=== PATIENT | female | born 1990 | race Caucasian/White ===

== ENCOUNTER 2019-12-23 18:40 | Observation (INO) | payer MEDICARE, OTHER ==
[~2019-12-23] VITALS: Ht 157.5 cm; Wt 73.3 kg
[~2019-12-23 18:40] MED LIST: ALBIPROI INH; ALBU90OI INH; ALLI; AMOX500 PO; AZIT250 PO; BENZ100A PO; BIRTH CONTROL PILLS; BUPR150T2; CEPH500 PO; CIPR500 PO; CITA20 PO; CYCL10 PO; Celexa20 MG PO; DIAZ10 PO; DIAZ5 PO; DIPHENHYDRAMINE; DOXY100 PO; ESCI20; HYDACE5 PO; HYDGUAL120 PO; HYDHOMSY PO; IBUP600 PO; IBUP800 PO; INSLI100I; INSUASPI; INSULANI; INSULANI SC; INSULANPEN SC; INSULIN; MEDR10 PO; METO10 PO; MULVITMINE PO; NAPR550 PO; NICO2; ONDA4 PO; OXYACE5T PO; OXYACE7.5T PO; OXYC10ER PO; PENVK500; PERM5TC TOP; PHENA200 PO; PROM12.5S PR; PROM25 PO; RXHYDACE PO; RXOXYACE PO; RXPHEN200 PO; RXPROM25 PO; RXPROM25S PR; RXTRAM50 PO; SULTRIDS PO; TRAACE PO; TRAM50 PO
[2019-12-23 21:04] LABS: BASOPHILS ABSOLUTE AUTO 0.03 K/mm3 (0.00-0.23); BASOPHILS PERCENT AUTO 0 % (0-2); EOSINOPHILS ABSOLUTE AUTO 0.66 K/mm3 (0.00-0.68); EOSINOPHILS PERCENT AUTO 9 % (0-6); Hematocrit 36.4 % (33.0-51.0); Hemoglobin 11.2 g/dL (11.5-16.0); IMMATURE GRAN ABSOLUTE AUTO 0.02 K/mm3 (0.00-0.10); IMMATURE GRAN PERCENT AUTO 0 % (0-1); LYMPHOCYTES PERCENT AUTO 36 % (21-46); MONOCYTES ABSOLUTE AUTO 0.65 K/mm3 (0.16-1.47); MONOCYTES PERCENT AUTO 9 % (4-13); Mean Corpuscular HGB 27.1 pg (26.0-34.0); Mean Corpuscular HGB Conc 30.8 g/dL (31.5-36.5); Mean Corpuscular Volume 88 fL (80-100); Mean Platelet Volume 9.6 fL (9.1-12.4); NEUTROPHILS ABSOLUTE AUTO 3.48 K/mm3 (1.96-9.15); NEUTROPHILS PERCENT AUTO 46 % (41-73); Platelet Count 336 K/mm3 (150-400); RDW Coefficient Variation 16.7 % (11.7-14.2); RDW Standard Deviation 54.9 fL (35.1-46.3); Red Blood Cell Count 4.14 M/mm3 (3.80-5.20); White Blood Cell Count 7.54 K/mm3 (4.00-11.30)
[2019-12-23 21:28] LABS: Alanine Aminotransfer (ALT/SGP 12 U/L (12-78); Albumin, Blood 2.1 g/dL (3.4-5.0); Albumin/Globulin Ratio 0.5 (0.8-1.8); Alk Phos 184 U/L (50-136); Anion Gap 6 mmol/L (6-16); Aspartate Aminotrans (AST/SGOT 22 U/L (12-37); Bilirubin, Total 0.3 mg/dL (0.1-1.0); Blood Urea Nitrogen 6 mg/dL (8-24); Bun/Creatinine Ratio 9.4 (12.0-20.0); CO2, Blood 18 mmol/L (21-32); Calcium, Blood 7.9 mg/dL (8.5-10.1); Chloride, Blood 113 mmol/L (98-108); Creatinine, Blood 0.64 mg/dL (0.40-1.00); Globulin, Blood 4.4 g/dL (2.2-4.0); Glomerular Filtration Rate >60 (60-); Glucose, Blood 77 mg/dL (70-99); Sodium, Blood 137 mmol/L (136-145); Total Protein, Blood 6.5 g/dL (6.4-8.2); Troponin I <0.015 ng/mL (0.000-0.040)
[2019-12-23] MEDS ORDERED: BUPRENORPHINE HC8 MG SL (22:30)
[2019-12-23] MEDS ORDERED: GABA300 (22:30)
[2019-12-23] MEDS ORDERED: Tapazole5 MG PO (22:31)
[2019-12-23] MEDS ORDERED: SERT50 PO (22:31)
[2019-12-23] MEDS ORDERED: METO50 PO (22:31)
[2019-12-23] MEDS ORDERED: ZIPR20 (22:31)
--- NOTE | 2019-12-24 01:08 | NUR ---
ADMITTED TO PCU, A&O, C\O PAIN IN BILAT LE. TRANSFER FROM [facility] TO BED WITHOU ASSIST. SEE ADMISSION ASSESSMENT FOR FULL ASSESSMENT. MEDICATED FOR PAIN SEE SEP. BED IN LOW POSITION, CALL LITGHT IN REACH WILL MONITOR.
[2019-12-24 04:25] LABS: BASOPHILS ABSOLUTE AUTO 0.03 K/mm3 (0.00-0.23); BASOPHILS PERCENT AUTO 0 % (0-2); EOSINOPHILS ABSOLUTE AUTO 0.69 K/mm3 (0.00-0.68); EOSINOPHILS PERCENT AUTO 10 % (0-6); Hemoglobin 9.6 g/dL (11.5-16.0); IMMATURE GRAN ABSOLUTE AUTO 0.01 K/mm3 (0.00-0.10); IMMATURE GRAN PERCENT AUTO 0 % (0-1); LYMPHOCYTES PERCENT AUTO 47 % (21-46); MONOCYTES ABSOLUTE AUTO 0.63 K/mm3 (0.16-1.47); MONOCYTES PERCENT AUTO 9 % (4-13); Mean Corpuscular HGB 26.9 pg (26.0-34.0); Mean Corpuscular Volume 87 fL (80-100); Mean Platelet Volume 9.7 fL (9.1-12.4); NEUTROPHILS ABSOLUTE AUTO 2.27 K/mm3 (1.96-9.15); NEUTROPHILS PERCENT AUTO 33 % (41-73); Platelet Count 310 K/mm3 (150-400); RDW Coefficient Variation 16.9 % (11.7-14.2); RDW Standard Deviation 53.9 fL (35.1-46.3); Red Blood Cell Count 3.57 M/mm3 (3.80-5.20); White Blood Cell Count 6.83 K/mm3 (4.00-11.30)
[2019-12-24 04:40] LABS: Anion Gap 6 mmol/L (6-16); Blood Urea Nitrogen 6 mg/dL (8-24); Bun/Creatinine Ratio 10.1 (12.0-20.0); CO2, Blood 23 mmol/L (21-32); Calcium, Blood 7.1 mg/dL (8.5-10.1); Chloride, Blood 116 mmol/L (98-108); Glomerular Filtration Rate >60 (60-); Glucose, Blood 93 mg/dL (70-99); Potassium, Blood 3.7 mmol/L (3.5-5.5); Sodium, Blood 145 mmol/L (136-145)
--- NOTE | 2019-12-24 11:18 | NUR ---
TRANSFER NOTE PT A&O; WITHDRAWN AND FLAT. PT IND ROOM. PT REPORTING PAIN 8/10 IN BLE; MILD NON-PITTING EDEMA NOTED WITH PINK/REDISH RASH NOTED. PT REFUSING PO PAIN MEDICATIONS; MEDICATED x1 WITH IV DILAUDID. IV PAIN MEDICATION D/C PER ORDERS, PT NOTIFIED AND EDUCATED ON IV AND PO MEDICATIONS; PT REQUESTING THAT THE DR REORDER IV PAIN MEDICATIONS; NOTIFIED DR LAKHANI NO NEW ORDERS. PT DENIES SOB, NAUSEA, AND DIZZINESS. PT CBG >100 THIS AM; NEW ORDERS FROM DR LAKHANI FOR ACHS AND PRN S/Sx HYPOGLYCEMIA. VSS. NO OTHER ACUTE CHANGES NOTED DURING SHIFT. REPORT GIVEN TO RN ASSUMING CARE OF PT; TRANSFERED TO ROOM 325.
[2019-12-24 14:48] LABS: Adenovirus F 40/41 Not Detected (NOT DETECT); Astrovirus Not Detected (NOT DETECT); Campylobacter Sp Not Detected (NOT DETECT); Cryptosporidium Not Detected (NOT DETECT); Cyclospora Cayetanensis Not Detected (NOT DETECT); E. Coli O157 Not Detected (NOT DETECT); Entamoeba Histolytica Not Detected (NOT DETECT); Enteroaggregative E. coli-EAEC Not Detected (NOT DETECT); Enteropathogenic E. coli-EPEC Not Detected (NOT DETECT); Enterotoxigenic E. coli-ETEC Not Detected (NOT DETECT); Giardia Lamblia Not Detected (NOT DETECT); Norovirus GI/GII Not Detected (NOT DETECT); Plesiomonas Shigelloides Not Detected (NOT DETECT); Rotavirus A Not Detected (NOT DETECT); Salmonella Sp Not Detected (NOT DETECT); Sapovirus Not Detected (NOT DETECT); Shiga Toxin-prod E. coli-STEC Not Detected (NOT DETECT); Shigella/Enteroin E. coli-EIEC Not Detected (NOT DETECT); Vibrio Cholerae Not Detected (NOT DETECT); Vibrio Sp Not Detected (NOT DETECT); Yersinia Enterocolitica Not Detected (NOT DETECT)
--- NOTE | 2019-12-24 16:41 | NUR ---
SHIFT SUMMARY PT TRANSFERRED TO MED FLOOR THIS MORNING FROM PCU. PT MEDICATED X2 FOR PAIN THIS SHIFT. PT DENIES SOB, N/V. PT UP INDEPENDENTLY IN ROOM. PT NAPPING MOST OF SHIFT. PT WITHDRAWN BUT COOPERATIVE WITH CARE. PT DECLINED TO EAT BREAKFAST AND LUNCH. PT GI PANEL RESULTS NEGATIVE. CONTACT PRECAUTIONS DISCONTINUED. PT IN BED WITH CALL LIGHT IN REACH. NO ACUTE CHANGES THIS SHIFT.
--- NOTE | 2019-12-25 04:50 | NUR ---
SHIFT SUMMARY ADMITTED FOR HYPOGLYCEMIA. FULL CODE. PLAN IS TO STABILIZE GLUCOSE LEVELS AND DISCHARGE. SHE IS ACHS CHEMSTICKS, ADA DIET, INDEPENDENT IN ROOM, RA. BLE HAVE MILD EDEMA. PO PAIN MEDS GIVEN TWICE THIS SHIFT FOR BLE PAIN. HUMALOG REQUIRED AT BEDTIME FOR 303 GLUCOSE LEVEL.
[2019-12-25 06:15] LABS: Hematocrit 33.8 % (33.0-51.0); Hemoglobin 10.3 g/dL (11.5-16.0); Mean Corpuscular HGB 26.5 pg (26.0-34.0); Mean Corpuscular HGB Conc 30.5 g/dL (31.5-36.5); Mean Corpuscular Volume 87 fL (80-100); Mean Platelet Volume 9.8 fL (9.1-12.4); Platelet Count 347 K/mm3 (150-400); RDW Coefficient Variation 16.7 % (11.7-14.2); RDW Standard Deviation 53.6 fL (35.1-46.3); Red Blood Cell Count 3.88 M/mm3 (3.80-5.20); White Blood Cell Count 6.89 K/mm3 (4.00-11.30)
[2019-12-25 06:33] LABS: Anion Gap 5 mmol/L (6-16); Blood Urea Nitrogen 7 mg/dL (8-24); CO2, Blood 24 mmol/L (21-32); Calcium, Blood 7.6 mg/dL (8.5-10.1); Chloride, Blood 108 mmol/L (98-108); Creatinine, Blood 0.64 mg/dL (0.40-1.00); Glomerular Filtration Rate >60 (60-); Glucose, Blood 272 mg/dL (70-99); Potassium, Blood 4.9 mmol/L (3.5-5.5); Sodium, Blood 137 mmol/L (136-145)
[2019-12-25] MEDS ORDERED: METO25 PO (10:27)
[2019-12-25] MEDS ORDERED: HYDMOR2 PO (10:31)
--- NOTE | 2019-12-25 11:05 | NUR ---
CBG PT REQUESTED CBG CHECKED, SHE STATED IT FELT LOW, CBG 25, JUICE AND SNACKS GIVEN, EDUCATED PT ABOUT THE IMPORTANCE OF EATING MEALS CONSISTENTLY, WILL RE-CHECK CBG
--- NOTE | 2019-12-25 12:38 | NUR ---
SUMMARY/DISCHARGE PT DISCHARGED TO HOME, PT VERBALIZED UNDERSTANDING OF INSTRUCTIONS, DISCHARGE PLANNING HAS MADE FOLLOW UP APPOINTMENT, NEW PATIENT PACKET GIVEN, SCRIPT FOR GLUCOMETER GIVEN, PT TAKEN DOWN SAFELY VIA WHEELCHAIR
== END 2019-12-25 12:20 | disposition home or self-care (01) ==
LOC: ER 18:40 → PCU 18:41 → MEDS 18:41 → PCU 12-24 → ER 12-24 00:02 → PCU 12-24 09:23 → MEDS 12-24 11:18
PROVIDERS: Internal Medicine; Nurse Practitioner Acute Care; Physician Assistant; ADMIT Family Medicine
DX: E11.649 Type 2 diabetes mellitus with hypoglycemia without coma (principal); R65.10 Systemic inflammatory response syndrome (SIRS) of non-infectious origin without acute organ dysfunction; R60.0 Localized edema; R19.7 Diarrhea, unspecified; E05.90 Thyrotoxicosis, unspecified without thyrotoxic crisis or storm; G89.29 Other chronic pain; D64.9 Anemia, unspecified; E88.09 Other disorders of plasma-protein metabolism, not elsewhere classified; I10 Essential (primary) hypertension; F32.9 Major depressive disorder, single episode, unspecified; F41.9 Anxiety disorder, unspecified; E11.42 Type 2 diabetes mellitus with diabetic polyneuropathy; F17.210 Nicotine dependence, cigarettes, uncomplicated; Z79.4 Long term (current) use of insulin; Z79.899 Other long term (current) drug therapy; Z88.8 Allergy status to other drugs, medicaments and biological substances; Z88.0 Allergy status to penicillin; Z79.891 Long term (current) use of opiate analgesic
CPT/HCPCS: 0097U; 36415; 71046; 80048; 80053; 82728; 82947; 83540; 83550; 83605; 83880; 84436; 84443; 84484; 85025; 85027; 93005; 93010; 93306; 93970; 96361; 96365; 96366; 96375; 99285-25; A9270-GY; J0696; J1170; J1650; J2270; J2405; J7030; J7799; Q0163

== ENCOUNTER 2019-12-28 19:26 | Emergency (ER) | payer MEDICARE, OTHER ==
[~2019-12-28] VITALS: Ht 157.5 cm; Wt 67.6 kg
[~2019-12-28 19:26] MED LIST changes: +BUPRENORPHINE HC8 MG SL; +GABA300; +HYDMOR2 PO; +METO25 PO; +METO50 PO; +SERT50 PO; +Tapazole5 MG PO; +ZIPR20
[2019-12-28] MEDS ORDERED: Lasix20 MG PO (22:53)
[2019-12-28] MEDS ORDERED: K-Dur10 MEQ PO (22:53)
== END 2019-12-28 23:44 | disposition home or self-care (01) ==
LOC: ER 19:26
DX: R60.0 Localized edema (principal); Z88.0 Allergy status to penicillin; Z88.8 Allergy status to other drugs, medicaments and biological substances; Z79.84 Long term (current) use of oral hypoglycemic drugs; Z79.899 Other long term (current) drug therapy; E11.9 Type 2 diabetes mellitus without complications; F17.200 Nicotine dependence, unspecified, uncomplicated
CPT/HCPCS: 96374; 96375; 99284-25; A9270; J1170

== ENCOUNTER 2020-02-19 01:50 | Emergency (ER) | payer MEDICARE, OTHER ==
[~2020-02-19] VITALS: Ht 157.5 cm; Wt 68.0 kg
[~2020-02-19 01:50] MED LIST changes: +BASAGLAR K100 UNIT/1 SC; +GABA300 PO; +HUMALOG100 UNIT/1; +Humalog KwikPen 100 SC; +K-Dur10 MEQ PO; +Lasix20 MG PO; +Lopressor 25 mg25 MG PO; +Lopressor 50 mg50 MG PO; +METHI10 PO; +NOVOLOG FL100 UNIT/3 SC; -ZIPR20; +ZIPR20 PO
[2020-02-19] MEDS ORDERED: CLIN300 PO (02:26)
[2020-02-19] MEDS ORDERED: ATEN50 PO (02:27)
[2020-02-19] MEDS ORDERED: Phenergan25 M1 PO (02:28)
[2020-02-19 03:11] LABS: Alanine Aminotransfer (ALT/SGP 26 U/L (12-78); Albumin, Blood 2.9 g/dL (3.4-5.0); Albumin/Globulin Ratio 0.7 (0.8-1.8); Alk Phos 148 U/L (50-136); Anion Gap 9 mmol/L (6-16); Aspartate Aminotrans (AST/SGOT 57 U/L (12-37); Bilirubin, Total 0.4 mg/dL (0.1-1.0); Blood Urea Nitrogen 5 mg/dL (8-24); CO2, Blood 19 mmol/L (21-32); Calcium, Blood 8.4 mg/dL (8.5-10.1); Chloride, Blood 108 mmol/L (98-108); Creatinine, Blood 0.56 mg/dL (0.40-1.00); Globulin, Blood 4.1 g/dL (2.2-4.0); Glomerular Filtration Rate >60 (60-); Glucose, Blood 474 mg/dL (70-99); Potassium, Blood 3.7 mmol/L (3.5-5.5); Sodium, Blood 136 mmol/L (136-145)
[2020-02-19 03:23] LABS: BASOPHILS ABSOLUTE AUTO 0.03 K/mm3 (0.00-0.23); BASOPHILS PERCENT AUTO 0 % (0-2); EOSINOPHILS ABSOLUTE AUTO 0.08 K/mm3 (0.00-0.68); EOSINOPHILS PERCENT AUTO 1 % (0-6); Hematocrit 36.7 % (33.0-51.0); Hemoglobin 11.7 g/dL (11.5-16.0); IMMATURE GRAN ABSOLUTE AUTO 0.02 K/mm3 (0.00-0.10); IMMATURE GRAN PERCENT AUTO 0 % (0-1); LYMPHOCYTES ABSOLUTE AUTO 2.24 K/mm3 (0.84-5.20); LYMPHOCYTES PERCENT AUTO 28 % (21-46); MONOCYTES ABSOLUTE AUTO 0.56 K/mm3 (0.16-1.47); MONOCYTES PERCENT AUTO 7 % (4-13); Mean Corpuscular HGB 25.7 pg (26.0-34.0); Mean Corpuscular HGB Conc 31.9 g/dL (31.5-36.5); Mean Corpuscular Volume 81 fL (80-100); Mean Platelet Volume 12.4 fL (9.1-12.4); NEUTROPHILS ABSOLUTE AUTO 5.11 K/mm3 (1.96-9.15); NEUTROPHILS PERCENT AUTO 64 % (41-73); Platelet Count 201 K/mm3 (150-400); RDW Coefficient Variation 12.6 % (11.7-14.2); RDW Standard Deviation 37.1 fL (35.1-46.3); Red Blood Cell Count 4.56 M/mm3 (3.80-5.20); White Blood Cell Count 8.04 K/mm3 (4.00-11.30)
[2020-02-19 03:35] LABS: Source, Urine Clean Catch
[2020-02-19 03:37] LABS: Bilirubin, Urine Neg (Neg); Blood, Urine Neg (Neg); Glucose Qualitative, Urine 4+ (Neg); Ketones, Urine Neg (Neg); Leukocyte Esterase, Urine Neg (Neg); Nitrite, Urine Neg (Neg); Protein, Urine Neg (Neg); Specific Gravity, Urine 1.015 (1.003-1.022); Urobilinogen, Urine NORM (Normal)
[2020-02-19 03:40] LABS: Appearance, Urine Clear (Clear); Color, Urine Yellow (P-Yellow)
== END 2020-02-19 06:16 | disposition home or self-care (01) ==
LOC: ER 01:50
PROVIDERS: Emergency Medicine
DX: R10.84 Generalized abdominal pain (principal); Z88.0 Allergy status to penicillin; Z88.8 Allergy status to other drugs, medicaments and biological substances; Z79.899 Other long term (current) drug therapy; Z79.4 Long term (current) use of insulin; E11.9 Type 2 diabetes mellitus without complications; F17.200 Nicotine dependence, unspecified, uncomplicated
CPT/HCPCS: 74176; 80053; 81003; 81025; 82947; 83690; 85025; 96360; 96361; 99284-25; J7030

== ENCOUNTER 2020-04-28 17:18 | Emergency (ER) | payer MEDICARE, OTHER ==
[~2020-04-28] VITALS: Ht 157.5 cm; Wt 63.5 kg
[~2020-04-28 17:18] MED LIST changes: +CLIN300 PO; +FAMO20 PO; -HUMALOG100 UNIT/1; +HUMALOG100 UNIT/1 SC; +METO50ER PO; +NARCAN4 M1; +OXYC10TA19 PO; +Phenergan25 M1 PO
[2020-04-28] MEDS ORDERED: GABA300 PO (20:20)
[2020-04-28] MEDS ORDERED: FIASP 100100 UNIT/3 (20:21)
[2020-04-28] MEDS ORDERED: [UNRECOGNIZED DRUG - OTHER] IJ (21:49)
== END 2020-04-28 22:23 | disposition home or self-care (01) ==
LOC: ER 17:18
DX: T40.2X1A Poisoning by other opioids, accidental (unintentional), initial encounter (principal); R40.20 Unspecified coma; G89.29 Other chronic pain; R10.9 Unspecified abdominal pain; I10 Essential (primary) hypertension; F32.9 Major depressive disorder, single episode, unspecified; F41.9 Anxiety disorder, unspecified; E03.9 Hypothyroidism, unspecified; F17.200 Nicotine dependence, unspecified, uncomplicated; Z88.0 Allergy status to penicillin; Z88.6 Allergy status to analgesic agent; Z88.8 Allergy status to other drugs, medicaments and biological substances; Z79.4 Long term (current) use of insulin; Z79.899 Other long term (current) drug therapy
CPT/HCPCS: 36415; 82947; 96374; 96375; 99284-25; J2310; J2405

== ENCOUNTER 2020-05-06 13:47 | Inpatient (IN) | payer MEDICARE, OTHER ==
[~2020-05-06] VITALS: Ht 157.5 cm; Wt 70.3 kg
[~2020-05-06 13:47] MED LIST changes: -BASAGLAR K100 UNIT/1 SC; -METO50ER PO; -OXYC10TA19 PO; +[UNRECOGNIZED DRUG - OTHER] IJ
[2020-05-06 14:41] LABS: Source, Urine Clean Catch
[2020-05-06 14:49] LABS: Bilirubin, Urine Neg (Neg); Blood, Urine Neg (Neg); Glucose Qualitative, Urine 4+ (Neg); Ketones, Urine 4+ (Neg); Leukocyte Esterase, Urine Neg (Neg); Nitrite, Urine Neg (Neg); Protein, Urine Neg (Neg); Urobilinogen, Urine NORM (Normal)
[2020-05-06 15:00] LABS: Appearance, Urine Clear (Clear); Color, Urine Pale Yellow (P-Yellow)
[2020-05-06 15:04] LABS: Base Excess Venous -22.8 mmol/L; Bicarbonate Venous 9.5 mmol/L (24.0-30.0); PCO2 Venous 17.8 mmHg (38-42); PO2 Venous 120 mmHg (38-42); pH Blood Venous 7.15 (7.34-7.37)
[2020-05-06 15:05] LABS: BASOPHILS ABSOLUTE AUTO 0.02 K/mm3 (0.00-0.23); BASOPHILS PERCENT AUTO 0 % (0-2); EOSINOPHILS ABSOLUTE AUTO 0.01 K/mm3 (0.00-0.68); EOSINOPHILS PERCENT AUTO 0 % (0-6); Hematocrit 36.2 % (33.0-51.0); Hemoglobin 10.8 g/dL (11.5-16.0); IMMATURE GRAN ABSOLUTE AUTO 0.13 K/mm3 (0.00-0.10); IMMATURE GRAN PERCENT AUTO 1 % (0-1); LYMPHOCYTES ABSOLUTE AUTO 1.33 K/mm3 (0.84-5.20); LYMPHOCYTES PERCENT AUTO 12 % (21-46); MONOCYTES ABSOLUTE AUTO 0.56 K/mm3 (0.16-1.47); MONOCYTES PERCENT AUTO 5 % (4-13); Mean Corpuscular HGB 25.1 pg (26.0-34.0); Mean Corpuscular HGB Conc 29.8 g/dL (31.5-36.5); Mean Corpuscular Volume 84 fL (80-100); Mean Platelet Volume 11.6 fL (9.1-12.4); NEUTROPHILS PERCENT AUTO 82 % (41-73); Platelet Count 220 K/mm3 (150-400); RDW Coefficient Variation 14.4 % (11.7-14.2); RDW Standard Deviation 43.5 fL (35.1-46.3); Red Blood Cell Count 4.31 M/mm3 (3.80-5.20); White Blood Cell Count 11.45 K/mm3 (4.00-11.30)
[2020-05-06] MEDS ORDERED: BASAGLAR K100 UNIT/1 SC (15:45)
[2020-05-06] MEDS ORDERED: METO50ER PO (15:46)
[2020-05-06] MEDS ORDERED: OXYC10TA19 PO (15:46)
[2020-05-06] MEDS ORDERED: GABA300 PO (15:47)
[2020-05-06] MEDS ORDERED: PROM25 PO (15:48)
[2020-05-06] MEDS ORDERED: FIASP 100100 UNIT/3 SC (15:49)
[2020-05-06 16:24] LABS: Alanine Aminotransfer (ALT/SGP 16 U/L (12-78); Albumin/Globulin Ratio 0.6 (0.8-1.8); Alk Phos 196 U/L (50-136); Aspartate Aminotrans (AST/SGOT 16 U/L (12-37); Bilirubin, Total 0.7 mg/dL (0.1-1.0); Blood Urea Nitrogen 11 mg/dL (8-24); Bun/Creatinine Ratio 19.2 (12.0-20.0); Calcium, Blood 8.3 mg/dL (8.5-10.1); Chloride, Blood 102 mmol/L (98-108); Creatinine, Blood 0.57 mg/dL (0.40-1.00); Globulin, Blood 5.1 g/dL (2.2-4.0); Glomerular Filtration Rate >60 (60-); Potassium, Blood 4.3 mmol/L (3.5-5.5); Sodium, Blood 132 mmol/L (136-145); Total Protein, Blood 8.1 g/dL (6.4-8.2)
[2020-05-06 16:25] LABS: Anion Gap 24 mmol/L (6-16); CO2, Blood 6 mmol/L (21-32); Glucose, Blood 773 mg/dL (70-99)
[2020-05-06 18:59] LABS: Albumin, Blood 2.9 g/dL (3.4-5.0); Anion Gap 23 mmol/L (6-16); Blood Urea Nitrogen 10 mg/dL (8-24); Bun/Creatinine Ratio 17.1 (12.0-20.0); CO2, Blood 4 mmol/L (21-32); Calcium, Blood 8.2 mg/dL (8.5-10.1); Chloride, Blood 117 mmol/L (98-108); Creatinine, Blood 0.58 mg/dL (0.40-1.00); Glomerular Filtration Rate >60 (60-); Glucose, Blood 593 mg/dL (70-99); Phosphorus, Blood 4.6 mg/dL (2.5-4.9)
[2020-05-06 19:10] LABS: Sodium, Blood 144 mmol/L (136-145)
--- NOTE | 2020-05-06 21:00 | NUR ---
CALL PLACED TO JADEN GALLARDO. PT STATING THE DILANITA ISNT WORKING AND SHE WANTS HER MEDS. COMPLAINS OF CONSTANT 8-10/10 PAIN, N&V. PER SAMI AWAITING RESULTS OF U-TOX BEFORE ORDERING MORE PAIN/ANXIETY MEDS.
[2020-05-06 21:03] LABS: U Amphetamine Screen Not Detected; U Barbituate Screen Not Detected; U Benzodiazapine Screen Not Detected; U Buprenorphine Screen Not Detected; U Cannabinoids Screen Not Detected; U Cocaine Screen Not Detected; U Methadone Screen Not Detected; U Methamphetamine Screen Not Detected; U Opiates Screen Not Detected; U Oxycodone Screen Not Detected; U Phencyclidine Screen Not Detected; U Propoxyphene Screen Not Detected
[2020-05-06 21:15] LABS: Glucose, Blood 596 mg/dL (70-99)
--- NOTE | 2020-05-06 23:06 | NUR ---
IV IN R BREAST INFILITRATED. PG PLACED TO MIKEY. IF UNABLE TO PLACE OK FOR CRITICAL CARE CONSULT TO PLACE A LINE PER JADEN GALLARDO
--- NOTE | 2020-05-06 23:22 | NUR ---
INSULIN GTT OFF FOR A PERIOD OF TIME AWAITING NEW LINE PLACEMENT.CBG 422 AND THEN 405 WHEN GTT WAS RESTARTED. CURRENTLY RUNNING AT 6U/KG. WILL CONTINUE TO MONITOR.
[2020-05-06 23:50] LABS: Albumin, Blood 3.1 g/dL (3.4-5.0); Anion Gap 18 mmol/L (6-16); Blood Urea Nitrogen 8 mg/dL (8-24); Bun/Creatinine Ratio 14.4 (12.0-20.0); CO2, Blood 6 mmol/L (21-32); Calcium, Blood 8.8 mg/dL (8.5-10.1); Chloride, Blood 121 mmol/L (98-108); Creatinine, Blood 0.55 mg/dL (0.40-1.00); Glomerular Filtration Rate >60 (60-); Glucose, Blood 415 mg/dL (70-99); Phosphorus, Blood 1.9 mg/dL (2.5-4.9); Potassium, Blood 4.1 mmol/L (3.5-5.5); Sodium, Blood 145 mmol/L (136-145)
--- NOTE | 2020-05-07 00:12 | NUR ---
PT C/O PERSISTENT PAIN AND N&V. DILAUDID WORKS WELL FOR A SHORT TIME BUT SHE IS FREQUENTLY ASKING FOR "MY MEDS". CALL PLACED TO DR. ESPARZA. ORDERS RECEIVED TO KEEP DILAUDID ORDER IS AND INCREASE FREQUENCY OF ZOFRAN. DR ESPARZA TO PUT ORDERS IN. PT IS CURRENTLY SLEEPING AND DOES NOT APPEAR TO BE IN PAIN OR NAUSEOUS AT THIS TIME.
[2020-05-07 03:44] LABS: Hemoglobin 11.1 g/dL (11.5-16.0); Mean Corpuscular HGB 24.4 pg (26.0-34.0); Mean Corpuscular Volume 82 fL (80-100); Mean Platelet Volume 10.2 fL (9.1-12.4); Platelet Count 272 K/mm3 (150-400); RDW Coefficient Variation 14.8 % (11.7-14.2); Red Blood Cell Count 4.54 M/mm3 (3.80-5.20); White Blood Cell Count 15.78 K/mm3 (4.00-11.30)
[2020-05-07 04:06] LABS: Albumin, Blood 3.1 g/dL (3.4-5.0); Anion Gap 14 mmol/L (6-16); Blood Urea Nitrogen 8 mg/dL (8-24); Bun/Creatinine Ratio 15.4 (12.0-20.0); CO2, Blood 10 mmol/L (21-32); Calcium, Blood 9.3 mg/dL (8.5-10.1); Chloride, Blood 126 mmol/L (98-108); Creatinine, Blood 0.52 mg/dL (0.40-1.00); Glomerular Filtration Rate >60 (60-); Glucose, Blood 233 mg/dL (70-99); Magnesium, Blood 2.1 mg/dL (1.6-2.4); Potassium, Blood 3.2 mmol/L (3.5-5.5); Sodium, Blood 150 mmol/L (136-145)
[2020-05-07 04:09] LABS: Phosphorus, Blood 0.8 mg/dL (2.5-4.9)
--- NOTE | 2020-05-07 04:43 | NUR ---
PT PHOS CRITICALLY LOW AT 0.8. CALL PLACED TO VILMA. ORDERS RECEIVED TO REPLACE WITH K-PHOS. WORSHIP DIRECTOR NOTIFIED
[2020-05-07 05:41] LABS: Albumin/Globulin Ratio 0.6 (0.8-1.8); Aspartate Aminotrans (AST/SGOT 12 U/L (12-37); Bilirubin, Total 0.6 mg/dL (0.1-1.0); Globulin, Blood 5.2 g/dL (2.2-4.0); Total Protein, Blood 8.3 g/dL (6.4-8.2)
[2020-05-07 06:12] LABS: Alanine Aminotransfer (ALT/SGP 17 U/L (12-78); Alk Phos 189 U/L (50-136)
--- NOTE | 2020-05-07 06:15 | NUR ---
SHIFT SUMMARY: PT ALERT AND ORIENTED. RESTLESS AND IMPULSIVE. NEEDED FREQUENT REMINDERS TO NOT GET OUT OF BED. SLEPT ON AND OFF T/O NIGHT. PT REPORTS HER LAST USE OF OXY WAS MONDAY. APPEARS TO BE IN WITHDRAWALS-TACHYCARDIC, HTN, PUPILS DILATED. RECEIVING DILAUDID Q 2. PT FREQUENTLY REQUESTS "MY MEDICATION". DILAUDID HAS GOOD EFFECT FOR A SHORT PERIOD OF TIME. PT WAS PERSISTENTLY NAUSEOUS AND RETCHING/VOMITING. ZOFRAN ORDERS CHANGED TO INCREASE FREQUENCY. SEEMS TO HAVE GOOD EFFECT. WHEN PT CANT GET MEDS IMMEDIATELY SHE WILL BEGIN TO YELL OUT "NURSE" AND "IT HURTS" DESPITE REDIRECTION AND EXPLAINING THAT IT MIGHT BE A MOMENT. SHE HAS BEEN ST MAJORITY OF SHIFT HOWEVER HR IS IN THE 90S CURRENTLY, SBP IN THE 150S. LUNG SOUNDS ARE CLEAR AND SHE SATS WELL ON RA. VOIDS ON OWN. PT HAS A PG TO MIKEY AND HAD A PIV IN R HAND THAT SHE STATED WAS PAINFUL WHEN FLUSHED AND WOULD NOT INFUSE. PG FLUSHES AND DRAWS WELL. D5 1/2NS WITH KCL INFUSING AT 150MLS/HR, INSULIN GTT AT 5U-LAST CBG 225. GAP IS CLOSED HOWEVER CO2 IS 10. K+ AND PHOS LOW THIS AM. REPLACEMENTS ORDERED HOWEVER PER PHARMACY K-PHOS IS NOT COMPATIBLE WITH INSULIN AND THERE IS ONLY THE PG AT THIS TIME. PT MAY NEED LINE PLACED. PG WAS DIFFICULT TO PLACE. WILL PASS REPORT TO ONCOMING SHIFT 225.
--- NOTE | 2020-05-07 07:30 | NUR ---
ASSUMED CARE: PT SITTING UP IN BED, CALLING OUT TO NURSE. UPON ENTERING ROOM PT RETCHING, ASKING FOR ICE WATER. EXPLAINED THAT FLUIDS AND ICE ARE A BAD IDEA AT THIS TIME DUE TO THE PERSISTENT NAUSEA. POWERGLIDE IN PLACE WITH INSULIN GTT AT 5 UNITS PER HOUR AT THIS TIME WELL D5 GTT. NEEDS SECOND IV ACCESS FOR KPHOS INFUSION. STAVE HEWER AWARE
[2020-05-07 07:59] LABS: Anion Gap 11 mmol/L (6-16); Blood Urea Nitrogen 8 mg/dL (8-24); Bun/Creatinine Ratio 14.4 (12.0-20.0); CO2, Blood 13 mmol/L (21-32); Calcium, Blood 9.5 mg/dL (8.5-10.1); Chloride, Blood 126 mmol/L (98-108); Creatinine, Blood 0.55 mg/dL (0.40-1.00); Glomerular Filtration Rate >60 (60-); Glucose, Blood 221 mg/dL (70-99); Potassium, Blood 2.8 mmol/L (3.5-5.5); Sodium, Blood 150 mmol/L (136-145)
[2020-05-07 08:01] LABS: Phosphorus, Blood 0.4 mg/dL (2.5-4.9)
--- NOTE | 2020-05-07 08:11 | NUR ---
RN NOTIFIED OF CRITICAL PHOS LEVEL. PT STILL NEEDS SECOND IV ACCESS DUE TO INCOMPATIBILITY OF INSULIN AND KPHOS. ATTEMPTED START FOR IV WITH NO VISIBILITY NOTED FOR NEW START. DISCUSSED WITH PROTECTOR PLATE ATTACHER. PT RESTING QUIETLY AT THIS TIME, HR 110.
--- NOTE | 2020-05-07 10:30 | NUR ---
PT'S SECOND IV INFILTRATED. RECIEVING INSULIN AT 4UNITS/HR. DR MORA CALLED AND STATED SHE WANTED PT TO RECIEVE BOLUS OF 2L NS. STOPPING MAINTENANCE FLUIDS FOR THIS.
--- NOTE | 2020-05-07 13:24 | NUR ---
DR MORA CAME TO SEE PT AWARE THAT PT ONLY HAS ONE IV. PT RECIEVED BOLUS FLUIDS AND AFTER REVIEW OF IV COMPATIBILITY FROM DIFFERENT SOURCE WITH NATIONAL DEDICATED TRUCK DRIVER FOUND IV KPHOS AND INSULIN ARE COMPATIBLE. THIS IS RUNNING THROUGH Y SITE NOW. DR AWARE THAT PT WAS REQUIRING IV DILAUDID Q2 HOURS AND THAT ABDOMINAL XRAY WAS NEGATIVE. DR DISCUSSED WITH PT AND PLANS FOR CT SCAN AND CHANGE IN MEDICATION ORDERS. PT RESTING QUIETLY AT THIS TIME.
[2020-05-07 14:18] LABS: BASOPHILS ABSOLUTE AUTO 0.03 K/mm3 (0.00-0.23); BASOPHILS PERCENT AUTO 0 % (0-2); EOSINOPHILS PERCENT AUTO 0 % (0-6); Hematocrit 33.7 % (33.0-51.0); Hemoglobin 10.4 g/dL (11.5-16.0); IMMATURE GRAN ABSOLUTE AUTO 0.07 K/mm3 (0.00-0.10); IMMATURE GRAN PERCENT AUTO 1 % (0-1); LYMPHOCYTES ABSOLUTE AUTO 1.45 K/mm3 (0.84-5.20); LYMPHOCYTES PERCENT AUTO 10 % (21-46); MONOCYTES ABSOLUTE AUTO 1.14 K/mm3 (0.16-1.47); MONOCYTES PERCENT AUTO 8 % (4-13); Mean Corpuscular HGB Conc 30.9 g/dL (31.5-36.5); Mean Corpuscular Volume 81 fL (80-100); Mean Platelet Volume 11.3 fL (9.1-12.4); NEUTROPHILS ABSOLUTE AUTO 12.17 K/mm3 (1.96-9.15); NEUTROPHILS PERCENT AUTO 82 % (41-73); Platelet Count 246 K/mm3 (150-400); RDW Coefficient Variation 15.3 % (11.7-14.2); RDW Standard Deviation 43.7 fL (35.1-46.3); Red Blood Cell Count 4.16 M/mm3 (3.80-5.20); White Blood Cell Count 14.86 K/mm3 (4.00-11.30)
[2020-05-07 14:28] LABS: Magnesium, Blood 1.9 mg/dL (1.6-2.4)
[2020-05-07 14:29] LABS: Albumin, Blood 2.6 g/dL (3.4-5.0); Anion Gap 11 mmol/L (6-16); Blood Urea Nitrogen 8 mg/dL (8-24); Bun/Creatinine Ratio 15.8 (12.0-20.0); CO2, Blood 12 mmol/L (21-32); Calcium, Blood 8.8 mg/dL (8.5-10.1); Chloride, Blood 128 mmol/L (98-108); Creatinine, Blood 0.51 mg/dL (0.40-1.00); Glomerular Filtration Rate >60 (60-); Glucose, Blood 262 mg/dL (70-99); Phosphorus, Blood 1.1 mg/dL (2.5-4.9); Potassium, Blood 3.6 mmol/L (3.5-5.5); Sodium, Blood 151 mmol/L (136-145)
[2020-05-07 16:18] LABS: CPK Creatine Kinase 80 U/L (26-193); Lactate Dehydrogenase (Ld),Bld 183 U/L (100-240)
[2020-05-07 17:15] LABS: Albumin, Blood 2.5 g/dL (3.4-5.0); Anion Gap 9 mmol/L (6-16); Blood Urea Nitrogen 7 mg/dL (8-24); Bun/Creatinine Ratio 12.9 (12.0-20.0); CO2, Blood 14 mmol/L (21-32); Calcium, Blood 8.7 mg/dL (8.5-10.1); Chloride, Blood 128 mmol/L (98-108); Creatinine, Blood 0.54 mg/dL (0.40-1.00); Glomerular Filtration Rate >60 (60-); Glucose, Blood 140 mg/dL (70-99); Phosphorus, Blood 2.1 mg/dL (2.5-4.9); Potassium, Blood 4.1 mmol/L (3.5-5.5); Sodium, Blood 151 mmol/L (136-145)
--- NOTE | 2020-05-07 18:06 | NUR ---
SHIFT SUMMARY: CALL TO DR MORA AFTER [address] INSTRUCTS D51/2 AND D5 TO RUN CONCURRENTLY. DR STATES TO RUN SECOND BAG OF KPHOS. DR MORA SAID SHE MAY ORDER FURTHER MEDS TO CORRECT CO2 AND MAY STOP INSULIN GTT. NO NEW ORDERS AT THIS TIME. PT HAS BEEN SLEEPING T/O DAY AND WHEN SHE WAKES UP SHE CALLS OUT AND HOLLERS FOR NURSE. THERE HAVE BEEN TIMES WHERE SHE VOMITED OFF SIDE OF BED WITHOUT WARNING. DR MORA AWARE OF CT RESULTS. PT RESTING AT THIS TIME.
--- NOTE | 2020-05-07 23:32 | NUR ---
ASSMUED CARE: PT SLEEPING AT BEGINNING OF SHIFT. UPON ENTERING ROOM PT TO CHECK A BS PT WOKE UP SLIGHTLY SAYING SHE NEEDED HER MEDS. I TOLD HER IT WOULD BE A MOMENT I HADNT GOTTEN A CHANCE TO LOOK OVER HER ORDERS. ONCE I LEFT THE ROOM SHE BEGAN YELLING OUT THAT SHE NEEDED THE NURSE. EXPLAINED MULTIPLE TIMES THAT IT WOULD BE A MOMENT. NOT REDIRECTABLE IN THIS REGARD. SHE CONTINUED TO YELL OUT AND BE DISRUPTIVE. PT GIVEN IV PHENERGAN REQUESTED. IN NSR. HTN WITH SBP IN THE 150S, HR IN THE 80S. LUNG SOUNDS CLEAR ON RA. PT HAS 2 PG ONE IN EACH ARM. D5W INFUSING AT 100MLS/HR, INSULIN GTT AT 4U/KG, KPHOS, AND POTASSIUM ALL INFUSING. PT HAS ORDERS FOR D5 1/2NS WITH 20MEQ KCL WELL D5W TO INFUSE. PLACED CALL TO DR KRAUSE ASKING FOR CLARIFICATION REGARDING THESE ORDERS. ORDERS RECEIVED TO D/C D5W AND RUN D5 1/2NS WITH KCL. PT CAN REPOSITION SELF AND IS STANDBY ASSIST TO USE COMMODE. WILL CONTINUE TO MONITOR
[2020-05-08 04:28] LABS: BASOPHILS ABSOLUTE AUTO 0.04 K/mm3 (0.00-0.23); BASOPHILS PERCENT AUTO 0 % (0-2); EOSINOPHILS ABSOLUTE AUTO 0.02 K/mm3 (0.00-0.68); EOSINOPHILS PERCENT AUTO 0 % (0-6); Hematocrit 32.3 % (33.0-51.0); Hemoglobin 10.1 g/dL (11.5-16.0); IMMATURE GRAN PERCENT AUTO 1 % (0-1); LYMPHOCYTES ABSOLUTE AUTO 5.34 K/mm3 (0.84-5.20); LYMPHOCYTES PERCENT AUTO 26 % (21-46); MONOCYTES ABSOLUTE AUTO 1.64 K/mm3 (0.16-1.47); MONOCYTES PERCENT AUTO 8 % (4-13); Mean Corpuscular HGB 24.5 pg (26.0-34.0); Mean Corpuscular HGB Conc 31.3 g/dL (31.5-36.5); Mean Corpuscular Volume 78 fL (80-100); Mean Platelet Volume 10.4 fL (9.1-12.4); NEUTROPHILS ABSOLUTE AUTO 13.17 K/mm3 (1.96-9.15); NEUTROPHILS PERCENT AUTO 65 % (41-73); Platelet Count 288 K/mm3 (150-400); RDW Coefficient Variation 15.5 % (11.7-14.2); RDW Standard Deviation 43.1 fL (35.1-46.3); Red Blood Cell Count 4.13 M/mm3 (3.80-5.20); White Blood Cell Count 20.31 K/mm3 (4.00-11.30)
[2020-05-08 04:41] LABS: Albumin, Blood 2.5 g/dL (3.4-5.0); Anion Gap 11 mmol/L (6-16); Blood Urea Nitrogen 4 mg/dL (8-24); Bun/Creatinine Ratio 6.9 (12.0-20.0); CO2, Blood 16 mmol/L (21-32); Chloride, Blood 121 mmol/L (98-108); Creatinine, Blood 0.58 mg/dL (0.40-1.00); Glomerular Filtration Rate >60 (60-); Glucose, Blood 61 mg/dL (70-99); Magnesium, Blood 1.4 mg/dL (1.6-2.4); Phosphorus, Blood 3.2 mg/dL (2.5-4.9); Potassium, Blood 2.6 mmol/L (3.5-5.5); Sodium, Blood 148 mmol/L (136-145)
--- NOTE | 2020-05-08 06:10 | NUR ---
SHIFT SUMMARY: PT SLEPT MAJORITY OF NIGHT. WOULD WAKE UP WHEN I WALKED IN TO HER ROOM AND WOULD IMMEDIATLEY ASK FOR HER PAIN MEDS. EXPLAINED THAT IT WOULD BE A MINUTE. I NEEDED TO FINISH WHAT I WAS CURRENTLY DOING AND THEN WOULD GET HER THE PAIN MEDS. SHE WOULD PROCEED TO CRY ASKING WHY I COULDNT DO THE PAIN MEDS FIRST. EXPLAINED I NEEDED TO CHECK HER BLOOD SUGAR AND GIVE OTHER MEDS ALREADY DRAWN UP AND READY TO GIVE FIRST. THESE LINES OF QUESTIONS CONTINUED REPEATEDLY. WHEN I DID GO OUT TO THE [facility] TO GET HER PAIN MEDS SHE CONTINUED TO YELL OUT. ONCE PAIN MEDS WERE FLUSHED IN SHE WOULD FALL ASLEEP. AT ONE POINT HER BLOOD SUGAR DROPPED TO HIGH 50S AND I GAVE HER A SEVERAL ORANGE JUICES. SHE DEMANDED MORE AND I TOLD HER NO. SHE ARGUED WITH ME ABOUT THAT AFTER I TOLD HER THAT ANY MORE WOULD BE TOO M UCH AND SHE ALREADY GOT AN ADDITIONAL JUICE. SO BLOOD SUGAR AT 6AM WAS IN THE 350S AND INSULIN GTT WAS RESTARTED. HER VSS T/O SHIFT. NO OTHER ACUTE CHANGES T/O SHIFT. BEHAVIORS REMAINED UNCHANGED AND SHE CAN NOT BE REDIRECTED. K+ 2.9 THIS AM. VILMA ORDERED 60MEQ KCL IV X 1. WILL PASS REPORT TO ONCOMING SHIFT AND WHEN SHE WAS TOLD
--- NOTE | 2020-05-08 08:30 | NUR ---
AM NOTE... ASSUMED CARE OF PT APROX 0700, PT IS A&Ox4. PT IS VERY SLEEPY BUT WILL WAKE TO LIGHT SHAKING AND/OR LOUD VOICE. PT IS ON INSULIN GTT RUNNING AT 3UNITS/HR AT THE START OF THIS SHIFT. CBG CHECKS Q1HRS. PT ALSO HAS KRIDERS RUNNING PER ORDERS AND D5 W/HALF NS AND POTASSIUM RUNNING PER ORDERS. L/S CLEAR T/O ON RA. BT PRESENT AND HYPOACTIVE NO EDEMA NOTED ON ASSESSMENT BP HYPERTENSIVE OTHER VS STABLE. PT WAKES UP WITH EACH BLOOD SUGAR CHECK ASKING IF ITS TIME FOR HER PAIN MEDS C/O OF 10/10 PAIN BUT THEN QUICKLY GOES BACK TO SLEEP WHEN TOLD IT IS NOT TIME. CALL LIGHT IN REACH WILL CONTINUE TO MONITOR.
[2020-05-08 13:59] LABS: Anion Gap 7 mmol/L (6-16); Blood Urea Nitrogen 4 mg/dL (8-24); Bun/Creatinine Ratio 7.3 (12.0-20.0); CO2, Blood 19 mmol/L (21-32); Calcium, Blood 8.2 mg/dL (8.5-10.1); Chloride, Blood 116 mmol/L (98-108); Creatinine, Blood 0.55 mg/dL (0.40-1.00); Glomerular Filtration Rate >60 (60-); Glucose, Blood 235 mg/dL (70-99); Magnesium, Blood 1.5 mg/dL (1.6-2.4); Potassium, Blood 3.9 mmol/L (3.5-5.5); Sodium, Blood 142 mmol/L (136-145)
--- NOTE | 2020-05-08 17:16 | NUR ---
CNA2 STUDENT DOING CLINICALS AND CARE
--- NOTE | 2020-05-08 17:36 | NUR ---
SHIFT SUMMARY... NO ACUTE NEGATIVE CHANGES NOTED THIS SHIFT. THE INSULIN GTT WAS STOPPED AT APROX 1530 AND PT WAS STARTED ON SUBQ LONG AND SHORT ACTIING INSULING ACHS. AT THIS TIME DR. SMITH WAS SPEAKING WITH THE PT AND MADE THE PT MEDICAL STATUS NO TELE, PT WAS ALSO PLACED BACK ON PO PAIN MEDICATION. PT BECAME VERY UPSET THAT THE IV DILAUDID WAS STOPPED. PT STARTED YELLING FOR THE DOCTOR TO COME BACK AND SPEAK WITH HER. THE DOCTOR CAME BACK INTO THE ROOM SEVERAL TIMES AND TOLD THE PT THAT THE IV PAIN MEDICATION WAS NO LONGER AN OPTION AND THAT SHE WOULD BE DISCHARGING HOME MOST LIKELY TOMORROW AND SHE WANTED HER BACK ON HER HOME REGIMEN. THE PT BECAME MORE UPSET AFTER THE DOCTOR LEFT DEMANDING TO TALK WITH THE DOCTOR AGAIN, WHEN SHE WAS TOLD THAT THE DOCTOR WAS NOT GOING TO BE ABLE TO COME BACK AND SPEAK WITH HER AGAIN SHE STARTED YELLING AT STAFF AND THEN SHE WALKED OUT OF HER ROOM AND SAID "WELL IF NO ONE WILL GET ME THE DOCTOR I'LL GO FIND HER MYSELF." PT THEN ATTEMPTED TO LEAVE THE ICU, ANOTHER RN WAS ABLE TO GET THE PT TO COME BACK TO HER ROOM AND ATTEMPTED TO HELP HER CALM DOWN THE NURSING SHIELD RUNNER WAS CALLED TO THE ROOM AT THAT TIME. PT WAS EXTENSIVELY EDUCATED ON PAIN CONTROL AND MANAGMENT, PT WAS NOT RECEPTIVE OF ANY EDUCATION AT THIS TIME. PT WAS OFFERED A HEATING PAD AND WARM BLANKETS WHICH SHE TOOK. THIS RN HAS ATTEMPTED TO EDUCATE THE PT T/O THIS SHIFT ON PAIN MANAGMENT PT HAS NOT BEEN RECEPTIVE AT ANY POINT THIS SHIFT. PT IS CURRENTLY SITTING UP IN BED RELAXED AND TALKING ON THE PHONE. PT HAS BEEN GETTING UP W/SBA FOR IV LINES TO THE TOILET. CALL LIGHT IN REACH WILL CONTINUE TO MONITOR.
--- NOTE | 2020-05-08 20:33 | NUR ---
ASSUMED CARE. SVEN JUST WOKE UP FROM A NAP. SHE IMMEDIATLY ASKED FOR PAIN MEDICATIONS AND WAS INSISTENT TO HAVE IT NOW. SHE ASKED IF THERE WAS A DIFFERENT DOCTOR GARBAGE PICK UP WORKER TONIGHT. REPORTS PAIN IN ABDOMIN 910 WITH NAUSEA. MILD TENDERNESS, MILD DISTENTION. ASKING FOR LOTS OF SNACKS, GOOD APPETITE. AOX3. ASKED WHEN HER NEXT PHENERGAN IS DUE. POWERGLIDE AND PICC LINE SL. WILL BRING SNACKS, CALL LIGHT IN REACH.
--- NOTE | 2020-05-08 21:00 | NUR ---
PT OUT IN [place], WHEN SHE SAW ME SHE STARTED TO GRAB HER BELLY AND CRY. SAID SHE IS HURTING REALLY BAD AND SHE NEEDS JUST A ONE TIME DOSE. SHE NEEDS SOMETHING MORE THE OXYCODONE IS NOT WORKING. TOLD HER JUST GAVE IT TO HER 30 MINUTES AGO. OFFERED A HEATING PAD FOR HER PAIN, SHE DENIED IT. SHE IS INSIST WE CALL THE DOCTOR AND ASK FOR A ONE TIME DOSE OF SOMETHING, STATES THEY GAVE HER DILUDID LAST NIGHT, AND WANTS TO KNOW IF SHE CAN HAVE THAT. INFORMED HER THAT THE NOTES STATES NO IV PAIN MEDICATION, BUT WILL SEE.
--- NOTE | 2020-05-08 21:10 | NUR ---
PT OUT IN [place] LOOKING FOR ME AGAIN, ASKING ABOUT PAIN MEDS. INFORMED HER AGAIN THAT THEY WILL NOT ORDER IV PAIN MEDICATION. SHE INSIST ON SEEING THE DOCTOR. CALLED DAO STANLEY AND INFORMED OF SITUATION., SHE SAID SHE CAN NOT MAKE IT UP DUE TO EMERGENCY SITUATION. INFORMED THE PATIENT OF THAT, SHE SAID IT IS NOT FAIR, AND THAT SHE DOES NOT UNDERSTAND WHY SHE CAN NOT HAVE IV PAIN MEDS. INFORMED HER THAT HER PAIN MEDS ARE DUE AROUND 0100 AND I WILL BRING THEM IN AT THAT TIME. SHE ASKED AGAIN ABOUT HER PHENERGAN TIME. INFORMED HER THAT IT IS NOT DUE TO 2300. SO SHE ASKED FOR CRACKERS, JUICE, SODA. INFORMED HER THAT DUE TO HER ADA DIET SHE CAN'T HAVE ANYMORE OJ IT WILL RAISE HER BLOOD SUGAR HIGHER AND SHE IS AT 311. SHE STATED "ISN'T THAT WHAT THE INSULIN IS FOR." INFORMED HER OF THE ORDERS.
--- NOTE | 2020-05-08 22:10 | NUR ---
PT INSISTING SHE NEEDS TO GO OUTSIDE, HER SISTER IS BRINGING A PHONE RE DYE HAND IN FOR HER AND SHE WANTS TO MEET HER DOWN STAIRS. INFORMED HER SHE CAN'T BE OUT MORE THEN 15 MINUTES ON A[employer]ORER. AND PLACED TAPER TAPE ON IV LINES.
--- NOTE | 2020-05-09 01:00 | NUR ---
PT ASKING FOR SOMETHING TO SLEEP, LIKE ATIVAN. CALLED DAO STANLEY AND SHE ORDERED MELATONIN. WENT TO GIVE HER THE MELATONIN WITH HER PAIN MEDS, AND SHE TOLD ME THAT SHE TAKES 10MG AT HOME THAT IT WILL NOT BE ENOUGH. SHE ALSO ASKED FOR THE DOCTOR AGAIN, TO TALK TO HER ABOUT HER PAIN MEDS. INFORMED HER AGAIN THAT THE DOCTOR SAID SHE WILL NOT BE ABLE TO MAKE IT UP.
--- NOTE | 2020-05-09 02:56 | NUR ---
HAD PALAEONTOLOGIST RECHECK BLOOD SUGARS DUE TO PATIENT HAVING JUICE, CRACKERS AND IS POSSIBLY GOING DOWN STAIRS AND GETTING THINGS TO EAT. BLOOD SUGAR WAS 499. CALLED DR. ESPARZA AND INFORMED. NEW ORDERS FOR NPO, ADMINISTER HIGH SLIDING SCALE INSULIN 18 UNITS NOW. GIVE 250ML NS BOLUS, AND RECHECK BLOOD SUGAR IN 2 HOURS.
--- NOTE | 2020-05-09 05:00 | NUR ---
BLOOD SUGAR RECHECK SHOWED 99. SVEN ASKED IMMEDIATLEY FOR JUICE AND CRACKERS. TOLD HER THAT OJ MAKES HER SUGAR SPIKE TO MUCH, SHE WAS AFRAID OF DROPPING MORE. SO GAVE HER ONE JUICE. SHE ASKED ABOUT HER PAIN MEDS AGAIN, TOLD HER IT WAS NOT TIME TILL 0600.
[2020-05-09 05:42] LABS: BASOPHILS ABSOLUTE AUTO 0.03 K/mm3 (0.00-0.23); BASOPHILS PERCENT AUTO 0 % (0-2); EOSINOPHILS ABSOLUTE AUTO 0.06 K/mm3 (0.00-0.68); EOSINOPHILS PERCENT AUTO 1 % (0-6); Hematocrit 33.1 % (33.0-51.0); Hemoglobin 10.5 g/dL (11.5-16.0); IMMATURE GRAN ABSOLUTE AUTO 0.03 K/mm3 (0.00-0.10); IMMATURE GRAN PERCENT AUTO 0 % (0-1); LYMPHOCYTES PERCENT AUTO 30 % (21-46); MONOCYTES ABSOLUTE AUTO 1.13 K/mm3 (0.16-1.47); MONOCYTES PERCENT AUTO 10 % (4-13); Mean Corpuscular HGB 24.6 pg (26.0-34.0); Mean Corpuscular HGB Conc 31.7 g/dL (31.5-36.5); Mean Corpuscular Volume 78 fL (80-100); NEUTROPHILS ABSOLUTE AUTO 6.83 K/mm3 (1.96-9.15); NEUTROPHILS PERCENT AUTO 59 % (41-73); Platelet Count 230 K/mm3 (150-400); RDW Coefficient Variation 15.2 % (11.7-14.2); RDW Standard Deviation 42.4 fL (35.1-46.3); Red Blood Cell Count 4.26 M/mm3 (3.80-5.20); White Blood Cell Count 11.58 K/mm3 (4.00-11.30)
[2020-05-09 05:52] LABS: Anion Gap 7 mmol/L (6-16); Blood Urea Nitrogen 10 mg/dL (8-24); Bun/Creatinine Ratio 14.2 (12.0-20.0); CO2, Blood 23 mmol/L (21-32); Calcium, Blood 8.7 mg/dL (8.5-10.1); Chloride, Blood 115 mmol/L (98-108); Glomerular Filtration Rate >60 (60-); Glucose, Blood 87 mg/dL (70-99); Magnesium, Blood 2.3 mg/dL (1.6-2.4); Potassium, Blood 3.4 mmol/L (3.5-5.5); Sodium, Blood 145 mmol/L (136-145)
--- NOTE | 2020-05-09 06:00 | NUR ---
PATIENT CALLED AT 0550 ASKING FOR HER PAIN MEDS. TOLD HER SHE STILL HAD 10 MINUTES THAT i WILL BRING THEM IN WHEN IT IS TIME. WITH IN A MINUTES FROM LEAVING THE ROOM SHE STARTED TO CALL OUT FOR NURSE, AND CRYING STAYING IT HURT. SHE EVENTUALLY CALLED AGAIN AT 0557 WANTING HER PAIN MEDS. WENT TO THE ROOM AT 0600 WITH HER PAIN MEDS AND SHE WAS NO LONGER CRYING AND SITTING ON THE SIDE OF THE BED WAITING FOR PAIN MEDS. GAVE HER THE PAIN MEDS AND SHE WANTED TO TALK TO THE DOCTOR AGAIN ABOUT IV PAIN MEDICATION. INFORMED HER AGAIN THAT THE DOCTOR WILL JUST TELL HER THAT THE DAYSHIFT DOCTOR WILL BE THE ONE TO CHANGE HER PAIN MEDS IF ANYTHING BUT THE DOCTOR ALREADY SAID NO IV PAIN MEDS. SO SHE ASKED FOR MORE JUICE AND CRACKERS.
--- NOTE | 2020-05-09 06:30 | NUR ---
SHIFT SUMMARY: SVEN WAS VERY INSISTING ON GETTING IV PAIN MEDS ALL NIGHT, SHE FIRST STARTED WITH ASKING IF THERE WAS A DIFFERENT DOCTOR ON SHIFT, THEN WHEN SHE WAS TOLD NO TO IV PAIN MEDS, SHE INSISTED TO TALK TO THE DOCTOR. SHE WAS TOLD THE DOCTOR WAS BUSY AND COULD NOT MAKE IT UP. SHE CONTINUED TO ASK. HER BLOOD SUGAR WAS 311, SHE LIKES TO EAT CRACKERS AND JUICE ALL THE TIME. HAD TO CUT HER OFF ON THE JUICE AND CRACKERS DUE TO BS. SHE GOT UPSET ABOUT IT AND ASKED ABOUT HER PAIN MEDS AND PHENERGAN AGAIN. RECHECK OF HER BLOOD SUGAR WAS 499. MD WAS CALLED, SHE WAS PUT NPO, AND GIVEN HIGH SLIDING SCALE OF 18 UNITS OF HUMOLOG, AND 250ML NS BOLUS. AGAIN ASKED IF SHE COULD HAVE IV PAIN MEDS SINCE SHE IS NPO, TOLD HER NO. SHE AGAIN GOT UPSET. BLOOD SUGAR THIS AM WAS 99. GAVE HER JUICE AND CRACKERS. ASKING FOR PAIN MEDS SEVERAL TIMES BEFORE THEY WERE DUE DISPITE BEING GIVE THE TIME, ALONG WITH MORE JUICE AND CRACKERS. RECHECK OF BLOOD SUGAR WAS IN THE 70'S SHE INSISTING ON MORE JUICE, INFORMED HER THAT IT WILL NOT SUSTAIN HER BLOOD SUGAR SHE NEEDS PROTEIN. GAVE HER CHEESE, AND CRACKERS. PLEASE SEE THE REST OF MY NOTES THROUGHOUT THE NIGHT FOR MORE DETAILS ON HER BEHAVIOR. CALL LIGHT IS IN REACH.
[2020-05-09] MEDS ORDERED: CLON.1 PO (09:04)
[2020-05-09] MEDS ORDERED: CIPR500 PO (09:04)
[2020-05-09] MEDS ORDERED: METR250 PO (09:05)
--- NOTE | 2020-05-09 15:29 | NUR ---
PT STANDING IN [place] AT START OF SHIFT. DR SMITH HERE TO D/C PT HOME. MEDS ADN FOLLOW UP CARE DISCUSSED AND REVIEWED WITH PT. D/C ORDERS PLACED, BUT IV ABX GIVEN PRIOR TO D/C PER DR SMITH. PT THEN PLACED ON PO MEDS. D/C MEDS FAXED TO PHARMACY, PER PT REQUEST. HARD COPY SCRIPT GIVEN TO PT AND COPY PLACED IN CHART. PT ASSISTED OUT TO FAMILY CAR VIA W/C BY YUSUF RN.
== END 2020-05-09 10:16 | disposition home or self-care (01) | DRG 638 ==
LOC: ER 13:47 → ICUW 17:31 → MEDS 05-08 18:44
PROVIDERS: Emergency Medicine; Hospitalist; ADMIT Internal Medicine
DX: E10.10 Type 1 diabetes mellitus with ketoacidosis without coma (principal); F11.20 Opioid dependence, uncomplicated; E03.9 Hypothyroidism, unspecified; E10.40 Type 1 diabetes mellitus with diabetic neuropathy, unspecified; E83.39 Other disorders of phosphorus metabolism; E83.42 Hypomagnesemia; E87.6 Hypokalemia; F17.210 Nicotine dependence, cigarettes, uncomplicated; F32.9 Major depressive disorder, single episode, unspecified; F41.9 Anxiety disorder, unspecified; G89.4 Chronic pain syndrome; I10 Essential (primary) hypertension; Z91.19 Patient's noncompliance with other medical treatment and regimen; K52.9 Noninfective gastroenteritis and colitis, unspecified
CPT/HCPCS: 36415; 74022; 74177; 80048; 80053; 80069; 81003; 82010; 82550; 82803; 82947; 83036; 83605; 83615; 83735; 84100; 85025; 85027; 96361; 96374; 96375; 99285-25; A9270; A9270-GY; C1751; J0744; J1170; J1200; J1650; J1815; J2405; J2550; J3475; J3480; J7030; J7040; J7050; J7060; J7070; Q9967

== ENCOUNTER 2020-05-16 01:05 | Observation (INO) | payer MEDICARE, OTHER ==
[~2020-05-16] VITALS: Ht 157.5 cm; Wt 69.3 kg
[~2020-05-16 01:05] MED LIST changes: +BASAGLAR K100 UNIT/1 SC; +CLON.1 PO; +FIASP 100100 UNIT/3 SC; +METO50ER PO; +METR250 PO; +OXYC5 PO
[2020-05-16 01:36] LABS: PO2 Arterial 95.1 mmHg (80-100)
[2020-05-16 03:32] LABS: BASOPHILS ABSOLUTE AUTO 0.05 K/mm3 (0.00-0.23); BASOPHILS PERCENT AUTO 0 % (0-2); EOSINOPHILS ABSOLUTE AUTO 0.23 K/mm3 (0.00-0.68); EOSINOPHILS PERCENT AUTO 2 % (0-6); Hematocrit 32.8 % (33.0-51.0); Hemoglobin 10.3 g/dL (11.5-16.0); IMMATURE GRAN ABSOLUTE AUTO 0.08 K/mm3 (0.00-0.10); IMMATURE GRAN PERCENT AUTO 1 % (0-1); LYMPHOCYTES ABSOLUTE AUTO 4.41 K/mm3 (0.84-5.20); LYMPHOCYTES PERCENT AUTO 34 % (21-46); MONOCYTES ABSOLUTE AUTO 1.28 K/mm3 (0.16-1.47); MONOCYTES PERCENT AUTO 10 % (4-13); Mean Corpuscular HGB 24.2 pg (26.0-34.0); Mean Corpuscular HGB Conc 31.4 g/dL (31.5-36.5); Mean Corpuscular Volume 77 fL (80-100); NEUTROPHILS ABSOLUTE AUTO 7.02 K/mm3 (1.96-9.15); NEUTROPHILS PERCENT AUTO 54 % (41-73); Platelet Count 381 K/mm3 (150-400); RDW Coefficient Variation 13.9 % (11.7-14.2); RDW Standard Deviation 38.9 fL (35.1-46.3); Red Blood Cell Count 4.26 M/mm3 (3.80-5.20); White Blood Cell Count 13.07 K/mm3 (4.00-11.30)
[2020-05-16 03:49] LABS: Alanine Aminotransfer (ALT/SGP 13 U/L (12-78); Albumin, Blood 2.6 g/dL (3.4-5.0); Albumin/Globulin Ratio 0.5 (0.8-1.8); Alk Phos 158 U/L (50-136); Anion Gap 6 mmol/L (6-16); Aspartate Aminotrans (AST/SGOT 9 U/L (12-37); Bilirubin, Total 0.2 mg/dL (0.1-1.0); Blood Urea Nitrogen 10 mg/dL (8-24); Bun/Creatinine Ratio 16.6 (12.0-20.0); CO2, Blood 25 mmol/L (21-32); Calcium, Blood 8.4 mg/dL (8.5-10.1); Chloride, Blood 106 mmol/L (98-108); Globulin, Blood 4.8 g/dL (2.2-4.0); Glomerular Filtration Rate >60 (60-); Glucose, Blood 359 mg/dL (70-99); Potassium, Blood 3.7 mmol/L (3.5-5.5); Sodium, Blood 137 mmol/L (136-145); Total Protein, Blood 7.4 g/dL (6.4-8.2)
[2020-05-16 05:56] LABS: CHOL/HDL RATIO 4.1; Cholesterol 124 mg/dL (50-200); HDL Cholesterol 30 mg/dL (>39); LDL/HDL RATIO 1.1; Low Density Lipoprotein Chol 33 mg/dL (0-110); Triglycerides 307 mg/dL (30-140); Very Low Density Lipoprot Chol 61 mg/dL (6-28)
--- NOTE | 2020-05-16 09:14 | NUR ---
PATIENT REPORTS PAIN BUT DOES NOT WANT TE OXYCODONE. SHE STATED "ONE OXY 10 IS NOT GOING TO GET RID OF MY PAIN. I JUST WANT THE DILAUDID LIKE LAST NIGHT" I TRIED TO CALL DR. BLUM. HE DID NOT ANSWER. WILL TRY AGAIN.
--- NOTE | 2020-05-16 17:57 | NUR ---
SHIFT SUMMARY PATIENT IS PLEASANT, STATES SHE HAS PAIN. SHE IS ALERT AND ORIENTED INDEPENDENT. ALL PAIN IN HER ABDOMEN. DENIES ANY VOMITING AT THIS TIME. SHE DOES WANT HER MEDICATION CHANGED FROM ZOFRAN TO PHENERGAN SHE GETS AT HOME. PATIENT WOULD LIKE TO GO OUTSIDE AND IS ANGRY THAT SHE CANNOT HAVE EXTRA VISITORS.
[2020-05-17 05:17] LABS: Hematocrit 34.9 % (33.0-51.0); Hemoglobin 10.7 g/dL (11.5-16.0); Mean Corpuscular HGB Conc 30.7 g/dL (31.5-36.5); Mean Corpuscular Volume 78 fL (80-100); RDW Coefficient Variation 14.7 % (11.7-14.2); RDW Standard Deviation 42.3 fL (35.1-46.3); Red Blood Cell Count 4.45 M/mm3 (3.80-5.20); White Blood Cell Count 9.64 K/mm3 (4.00-11.30)
[2020-05-17 05:24] LABS: Mean Platelet Volume 10.7 fL (9.1-12.4); Platelet Count 204 K/mm3 (150-400)
--- NOTE | 2020-05-17 05:44 | NUR ---
SHIFT SUMMARY PT WAS OUTSIDE SMOKING DURING SHIFT REPORT THEN IMMED PUSHED CALL LIGHT WHEN RETURNING TO ROOM REQUESTING ADDITIONAL PAIN MEDS. THIS RN ADVISED PT THAT THIS WAS ADDRESSED BY HOSP ALREADY TODAY AND HE WAS NOT WILING TO MAKE ANY CHANGES, PT THEN STATED "BUT THERES A NEW DOC ON NOW". THIS RN INFORMED PT THAT NIGHT DOC IS FOR EMERGENCIES AND THAT HE WILL NOT MAKE CHANGES TO HOSP MED SCHED WHEN IT HAS BEEN ADDRESSED. PT THEN STATEED "BUT I GOT A 1 TIME ORDER FOR DILAUDID LAST NIGHT" THEN PT BEGAN REQUESTING ATIVAN TO HELP HER SLEEP, THIS RN ADVISED PT OF DISCOMFORT ADMIN ATIVAN WITH HER NARCS SHE IS RECEIVING, SHE THEN STATED "BUT I AM ONLY GETTING LOW DOSES". PT THEN BEGAN ASKING FOR IV PROMETH, THIS RN ( WELL 3 PREV RN'S) INFORMED PT THAT SHE CLD NOT GET THAT IN HER HAND IV AND SHE IS A VERY DIFFICULT START, SHE THEN ARGUED THAT SHE WAS DEHYDRATED WHEN SHE CAME IN AND REQUESTED A NEW IV AND TO CALL THE DOCTOR, SHE DEMAMDED THAT THIS RN CALL THE DOC TO COME TO HER ROOM. THIS RN INFORM PT THAT DOC WLD NOT COME UNLESS OF EMERGENCY AND HER HOSP WILL SEE HER IN AM. MADE CALL TO HOSP AND REQ MELATONIN FOR SLEEP & 25 PO PROMETH 1X (WHICH IS PTS HOME DOSE). WOKE PT TO ADMIN MELATONIN, PT SLEPT FROM 0 UNTIL 419 AND WOKE REQUESTING PAIN MEDS (C/O 8/10 ABD PAIN) DID NOT APPEAR IN DISCOM/DISTRESS, PT ASKED IF SHE WLD GET BREAKFAST TODAY AND QUICKLY RETURNED TO SLEEP & IS SLEEPING AT THIS TIME, CALL LIGHT IN REACH, WILL CONT TO MONITOR UNTIL REPORT GIVEN TO DAY RN.
[2020-05-17 05:50] LABS: Albumin, Blood 2.4 g/dL (3.4-5.0); Anion Gap 8 mmol/L (6-16); Blood Urea Nitrogen 6 mg/dL (8-24); Bun/Creatinine Ratio 10.8 (12.0-20.0); CO2, Blood 22 mmol/L (21-32); Calcium, Blood 8.2 mg/dL (8.5-10.1); Chloride, Blood 116 mmol/L (98-108); Creatinine, Blood 0.55 mg/dL (0.40-1.00); Glomerular Filtration Rate >60 (60-); Glucose, Blood 113 mg/dL (70-99); Phosphorus, Blood 3.9 mg/dL (2.5-4.9); Sodium, Blood 146 mmol/L (136-145)
--- NOTE | 2020-05-17 08:15 | NUR ---
DROPPED BREAKFAST TRAY OFF IN PT'S ROOM. PT STATED SHE DOESN'T KNOW WHEN SHE WILL EAT IT.
--- NOTE | 2020-05-17 09:33 | NUR ---
PATIENT STATES THAT HER PAIN IS STILL A 9 OUT OF TEN. SHE DENIES ANY CONCERNS AT THIS TIME. SHE STATES THAT SHE IS FEELING FINE. ASKED IF SHE IS GOING TO BE DISCHARGED TODAY. I SPOKE WITH THE DOCTOR. THE PATIENT STATES THAT "IF [SHE] SENT HOME WITHOUT PAIN MEDICATIONS [SHE] WILL BE RIGHT BACK BECAUSE HER PAIN IS NOT MANAGED". I SPOKE WITH DR. OMRA. SHE IS IN TO SEE THE PATIENT.
--- NOTE | 2020-05-17 10:34 | NUR ---
patient spoke with the patient about the current concerns. patient states that she would be back to the hospital tomorrow if she was not given enough pills. she also told the primary nurse that she moved here to get into rehab for her opiate addiction. she states she cannot get into inpatient with her insurance so she is trying to get into the methadone clinic.
--- NOTE | 2020-05-17 10:46 | NUR ---
PATIENT STATES SHE NEEDS TO LEAVE RIGHT AWAY DUE TO FAMILY EMERGENCY. SHE STATES THAT SHE NEEDS TO GET OUT OF THE HOSPITAL TO GO WITH HER DAUGHTER UP TO [facility]. SHE STATES THAT SHE NEEDS TO GET OUT OF HERE RIGHT AWAY AND WANTS A ONE TIME DOSE OF PAIN MEDICATIONS FOR THE TRIP. I CALLED DR. MORA FOR THE DISCHARGE ORDERS AND HAVE NOT HEARD BACK FROM HER.
--- NOTE | 2020-05-17 11:21 | NUR ---
DISCAHRGE SUMMARY PATIENT IV REMOVED. PATIENT REFUSED TO BE WHEELED OUT. PATIENT MEDICATION LIST SENT TO [facility] AND PAPER PRESCRIPTION WITH THE PATIENT. NO ACUTE CONCERNS AT TIME OF DISCHARGE.
== END 2020-05-17 11:25 | disposition home or self-care (01) ==
LOC: ER 01:05 → MEDS 04:24
PROVIDERS: Emergency Medicine; Internal Medicine; ADMIT Internal Medicine
DX: K85.90 Acute pancreatitis without necrosis or infection, unspecified (principal); E10.65 Type 1 diabetes mellitus with hyperglycemia; G89.4 Chronic pain syndrome; F11.20 Opioid dependence, uncomplicated; I10 Essential (primary) hypertension; E10.40 Type 1 diabetes mellitus with diabetic neuropathy, unspecified; F17.210 Nicotine dependence, cigarettes, uncomplicated; F32.9 Major depressive disorder, single episode, unspecified; F41.9 Anxiety disorder, unspecified; E03.9 Hypothyroidism, unspecified; Z88.0 Allergy status to penicillin; Z88.6 Allergy status to analgesic agent; Z88.8 Allergy status to other drugs, medicaments and biological substances; Z79.4 Long term (current) use of insulin; Z79.899 Other long term (current) drug therapy; Z90.49 Acquired absence of other specified parts of digestive tract; Z23 Encounter for immunization; Z51.5 Encounter for palliative care
CPT/HCPCS: 36415; 36600; 76700; 80053; 80061; 80069; 82803; 82947; 83605; 83690; 85025; 85027; 96360; 96361; 96372-59; 99285-25; A9270-GY; J1170; J2405; J2550; J3010; J7030

== ENCOUNTER 2020-05-24 20:42 | Emergency (ER) | payer MEDICARE, OTHER ==
[~2020-05-24] VITALS: Ht 157.5 cm; Wt 63.5 kg
[2020-05-25 00:37] LABS: BASOPHILS ABSOLUTE AUTO 0.05 K/mm3 (0.00-0.23); BASOPHILS PERCENT AUTO 0 % (0-2); EOSINOPHILS ABSOLUTE AUTO 0.14 K/mm3 (0.00-0.68); EOSINOPHILS PERCENT AUTO 1 % (0-6); Hemoglobin 11.2 g/dL (11.5-16.0); IMMATURE GRAN ABSOLUTE AUTO 0.05 K/mm3 (0.00-0.10); IMMATURE GRAN PERCENT AUTO 0 % (0-1); LYMPHOCYTES ABSOLUTE AUTO 3.16 K/mm3 (0.84-5.20); LYMPHOCYTES PERCENT AUTO 22 % (21-46); MONOCYTES ABSOLUTE AUTO 1.13 K/mm3 (0.16-1.47); MONOCYTES PERCENT AUTO 8 % (4-13); Mean Corpuscular HGB 23.8 pg (26.0-34.0); Mean Corpuscular HGB Conc 31.1 g/dL (31.5-36.5); Mean Corpuscular Volume 77 fL (80-100); Mean Platelet Volume 10.7 fL (9.1-12.4); NEUTROPHILS ABSOLUTE AUTO 10.03 K/mm3 (1.96-9.15); NEUTROPHILS PERCENT AUTO 69 % (41-73); Platelet Count 397 K/mm3 (150-400); RDW Coefficient Variation 14.3 % (11.7-14.2); RDW Standard Deviation 39.3 fL (35.1-46.3); White Blood Cell Count 14.56 K/mm3 (4.00-11.30)
[2020-05-25 00:41] LABS: Base Excess Venous -3.3 mmol/L; Bicarbonate Venous 22.2 mmol/L (24.0-30.0); PCO2 Venous 32.7 mmHg (38-42); PO2 Venous 172 mmHg (38-42); pH Blood Venous 7.42 (7.34-7.37)
[2020-05-25 00:54] LABS: Alanine Aminotransfer (ALT/SGP 18 U/L (12-78); Albumin, Blood 3.2 g/dL (3.4-5.0); Albumin/Globulin Ratio 0.6 (0.8-1.8); Alk Phos 181 U/L (50-136); Anion Gap 9 mmol/L (6-16); Aspartate Aminotrans (AST/SGOT 19 U/L (12-37); Beta-hydroxybutyrate 2.6 mg/dL (0.2-2.8); Bilirubin, Total 0.3 mg/dL (0.1-1.0); Blood Urea Nitrogen 13 mg/dL (8-24); Bun/Creatinine Ratio 19.6 (12.0-20.0); CO2, Blood 21 mmol/L (21-32); Calcium, Blood 8.7 mg/dL (8.5-10.1); Chloride, Blood 103 mmol/L (98-108); Creatinine, Blood 0.66 mg/dL (0.40-1.00); Globulin, Blood 5.3 g/dL (2.2-4.0); Glomerular Filtration Rate >60 (60-); Glucose, Blood 522 mg/dL (70-99); Potassium, Blood 4.5 mmol/L (3.5-5.5); Sodium, Blood 133 mmol/L (136-145); Total Protein, Blood 8.5 g/dL (6.4-8.2)
[2020-05-25] MEDS ORDERED: Cleocin HCl300 MG PO (01:27)
== END 2020-05-25 02:15 | disposition home or self-care (01) ==
LOC: ER 20:42
PROVIDERS: Emergency Medicine; Physician Assistant
DX: K05.10 Chronic gingivitis, plaque induced (principal); K02.9 Dental caries, unspecified; E10.65 Type 1 diabetes mellitus with hyperglycemia; I10 Essential (primary) hypertension; F32.9 Major depressive disorder, single episode, unspecified; F41.9 Anxiety disorder, unspecified; E03.9 Hypothyroidism, unspecified; F17.210 Nicotine dependence, cigarettes, uncomplicated; Z79.899 Other long term (current) drug therapy; Z88.5 Allergy status to narcotic agent; Z88.0 Allergy status to penicillin; Z88.8 Allergy status to other drugs, medicaments and biological substances
CPT/HCPCS: 36415; 80053; 82010; 82803; 82947; 83690; 85025; 96361; 96374; 96375; 99282; A9270; J1200; J1815; J1885; J2550; J7030

== ENCOUNTER 2020-05-26 01:03 | Emergency (ER) | payer MEDICARE, OTHER ==
[~2020-05-26] VITALS: Ht 157.5 cm; Wt 63.5 kg
[~2020-05-26 01:03] MED LIST changes: +Cleocin HCl300 MG PO
== END 2020-05-26 02:32 | disposition home or self-care (01) ==
LOC: ER 01:03
DX: K12.1 Other forms of stomatitis (principal); E11.9 Type 2 diabetes mellitus without complications; I10 Essential (primary) hypertension; F17.210 Nicotine dependence, cigarettes, uncomplicated; Z88.0 Allergy status to penicillin; Z88.8 Allergy status to other drugs, medicaments and biological substances; Z88.6 Allergy status to analgesic agent; Z79.4 Long term (current) use of insulin; Z79.899 Other long term (current) drug therapy
CPT/HCPCS: 99282; A9270

== ENCOUNTER 2020-06-03 05:40 | Emergency (ER) | payer OTHER, MEDICARE ==
[~2020-06-03] VITALS: Ht 160 cm; Wt 63.5 kg
[2020-06-03] MEDS ORDERED: HYDR1TAB94 PO (08:02)
== END 2020-06-03 08:15 | disposition home or self-care (01) ==
LOC: ER 05:40
DX: S16.1XXA Strain of muscle, fascia and tendon at neck level, initial encounter (principal); S09.90XA Unspecified injury of head, initial encounter; M79.605 Pain in left leg; E10.9 Type 1 diabetes mellitus without complications; I10 Essential (primary) hypertension; F32.9 Major depressive disorder, single episode, unspecified; F41.9 Anxiety disorder, unspecified; E03.9 Hypothyroidism, unspecified; F17.210 Nicotine dependence, cigarettes, uncomplicated; Z88.5 Allergy status to narcotic agent; Z88.0 Allergy status to penicillin; Z88.8 Allergy status to other drugs, medicaments and biological substances; Z79.4 Long term (current) use of insulin; Z79.899 Other long term (current) drug therapy; V43.52XA Car driver injured in collision with other type car in traffic accident, initial encounter; Y93.9 Activity, unspecified; Y92.410 Unspecified street and highway as the place of occurrence of the external cause
CPT/HCPCS: 70450; 72125; 72170; 73552; 96374; 99284-25; A9270; J3010; L0160

== ENCOUNTER 2020-06-05 09:25 | Inpatient (IN) | payer OTHER, MEDICARE ==
[~2020-06-05] VITALS: Ht 157.5 cm; Wt 65.0 kg
[~2020-06-05 09:25] MED LIST changes: +HYDR1TAB94 PO
[2020-06-05 10:53] LABS: BASOPHILS ABSOLUTE AUTO 0.11 K/mm3 (0.00-0.23); BASOPHILS PERCENT AUTO 0 % (0-2); EOSINOPHILS ABSOLUTE AUTO 0.17 K/mm3 (0.00-0.68); EOSINOPHILS PERCENT AUTO 1 % (0-6); Hematocrit 38.1 % (33.0-51.0); Hemoglobin 10.9 g/dL (11.5-16.0); IMMATURE GRAN ABSOLUTE AUTO 0.42 K/mm3 (0.00-0.10); IMMATURE GRAN PERCENT AUTO 2 % (0-1); LYMPHOCYTES ABSOLUTE AUTO 6.49 K/mm3 (0.84-5.20); LYMPHOCYTES PERCENT AUTO 25 % (21-46); MONOCYTES ABSOLUTE AUTO 2.03 K/mm3 (0.16-1.47); MONOCYTES PERCENT AUTO 8 % (4-13); Mean Corpuscular HGB 23.9 pg (26.0-34.0); Mean Corpuscular HGB Conc 28.6 g/dL (31.5-36.5); Mean Corpuscular Volume 83 fL (80-100); Mean Platelet Volume 11.4 fL (9.1-12.4); NEUTROPHILS ABSOLUTE AUTO 16.39 K/mm3 (1.96-9.15); NEUTROPHILS PERCENT AUTO 64 % (41-73); Platelet Count 378 K/mm3 (150-400); RDW Coefficient Variation 14.6 % (11.7-14.2); RDW Standard Deviation 43.9 fL (35.1-46.3); Red Blood Cell Count 4.57 M/mm3 (3.80-5.20); White Blood Cell Count 25.61 K/mm3 (4.00-11.30)
[2020-06-05 10:54] LABS: Base Excess Venous -24.6 mmol/L; Bicarbonate Venous 8.5 mmol/L (24.0-30.0); PCO2 Venous 15.7 mmHg (38-42)
[2020-06-05 10:55] LABS: pH Blood Venous 7.11 (7.34-7.37)
[2020-06-05 11:31] LABS: Alanine Aminotransfer (ALT/SGP 23 U/L (12-78); Albumin, Blood 3.3 g/dL (3.4-5.0); Albumin/Globulin Ratio 0.6 (0.8-1.8); Alk Phos 212 U/L (50-136); Aspartate Aminotrans (AST/SGOT 30 U/L (12-37); Bilirubin, Total 1.2 mg/dL (0.1-1.0); Blood Urea Nitrogen 20 mg/dL (8-24); Bun/Creatinine Ratio 27.7 (12.0-20.0); Calcium, Blood 9.2 mg/dL (8.5-10.1); Chloride, Blood 91 mmol/L (98-108); Creatinine, Blood 0.72 mg/dL (0.40-1.00); Globulin, Blood 5.1 g/dL (2.2-4.0); Glomerular Filtration Rate >60 (60-); Potassium, Blood 4.8 mmol/L (3.5-5.5); Sodium, Blood 126 mmol/L (136-145); Total Protein, Blood 8.4 g/dL (6.4-8.2); Troponin I <0.015 ng/mL (0.000-0.040)
[2020-06-05 11:33] LABS: Anion Gap 29 mmol/L (6-16); CO2, Blood 6 mmol/L (21-32); Glucose, Blood 1000 mg/dL (70-99)
[2020-06-05 12:26] LABS: U Amphetamine Screen Not Detected; U Barbituate Screen Not Detected; U Benzodiazapine Screen Not Detected; U Buprenorphine Screen Not Detected; U Cannabinoids Screen Not Detected; U Cocaine Screen Not Detected; U Methadone Screen Not Detected; U Methamphetamine Screen Not Detected; U Opiates Screen Not Detected; U Oxycodone Screen Not Detected; U Phencyclidine Screen Not Detected; U Propoxyphene Screen Not Detected
[2020-06-05 12:49] LABS: Source, Urine Clean Catch
[2020-06-05 13:08] LABS: Appearance, Urine Clear (Clear); Bilirubin, Urine Neg (Neg); Blood, Urine 1+ (Neg); Color, Urine Yellow (P-Yellow); Glucose Qualitative, Urine 4+ (Neg); Ketones, Urine 4+ (Neg); Leukocyte Esterase, Urine Neg (Neg); Nitrite, Urine Neg (Neg); Protein, Urine Neg (Neg); Specific Gravity, Urine 1.015 (1.003-1.022); Urobilinogen, Urine NORM (Normal)
[2020-06-05] MEDS ORDERED: CLON.1 PO (13:15)
[2020-06-05 13:27] LABS: Bacteria Rare /hpf; Red Blood Cells, Urine 0-2 /hpf (0-2); Squamous Epithelial Cells Few /hpf (Few); White Blood Cells, Urine 0-2 /hpf (0-5)
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
[2020-06-05 16:21] LABS: Troponin I <0.015 ng/mL (0.000-0.040)
[2020-06-05 16:39] LABS: Anion Gap 19 mmol/L (6-16); Blood Urea Nitrogen 19 mg/dL (8-24); Bun/Creatinine Ratio 23.5 (12.0-20.0); CO2, Blood 8 mmol/L (21-32); Calcium, Blood 8.1 mg/dL (8.5-10.1); Chloride, Blood 116 mmol/L (98-108); Creatinine, Blood 0.81 mg/dL (0.40-1.00); Glomerular Filtration Rate >60 (60-); Glucose, Blood 550 mg/dL (70-99); Phosphorus, Blood 2.4 mg/dL (2.5-4.9); Potassium, Blood 4.4 mmol/L (3.5-5.5)
[2020-06-05 16:56] LABS: Sodium, Blood 143 mmol/L (136-145)
--- NOTE | 2020-06-05 17:26 | NUR ---
REPORTED LAB RESULTS SODIUM, CHLORIDE, AND GLUCOSE LEVELS REPORTED TO DR. MORA, NO NEW ORDERS AT THIS TIME.
--- NOTE | 2020-06-05 18:11 | NUR ---
END OF SHIFT PT RESTING IN BED, HAS BEEN LESS AGITATED SINCE BLADDER DRAINED, CONTINUES TO THRASH AROUND INTERMITTENTLY AND ATTEMPT TO GET OOB. SWB AND VEST RESTRAINTS REMAIN IN PLACE TO PROTECT LINES/PATIENT. HR 120'S SIT, OTHER VSS. CBG'S IMPROVING, CONTINUING TO TITRATE INSULIN GTT. WILL REDRAW LABS AT 1900. DISCUSSED CHANGING IVF TO DEXTROSE WHEN CBG <250, DR. MORA INSTRUCTIONS TO CONTINUE NS UNTIL CO2 IMPROVES. PT'S GRANDFATHER AT BEDSIDE. SCD'S IN PLACE TO BLE'S. WILL CONTINUE TO MONITOR AND REPORT TO ONCOMING SHIFT.
[2020-06-05 19:44] LABS: Anion Gap 13 mmol/L (6-16); Blood Urea Nitrogen 14 mg/dL (8-24); Bun/Creatinine Ratio 20.4 (12.0-20.0); CO2, Blood 13 mmol/L (21-32); Calcium, Blood 8.5 mg/dL (8.5-10.1); Chloride, Blood 124 mmol/L (98-108); Creatinine, Blood 0.69 mg/dL (0.40-1.00); Glomerular Filtration Rate >60 (60-); Glucose, Blood 317 mg/dL (70-99); Potassium, Blood 3.7 mmol/L (3.5-5.5); Sodium, Blood 150 mmol/L (136-145)
--- NOTE | 2020-06-05 21:00 | NUR ---
ASSUMED PT CARE AT 1915 FROM [facility] PT RESTING IN BED IN VEST AND BILATERAL SOFT WRIST RESTRAINTS D/T BEHAVIORS AND TRYING TO GET OUT OF BED, WELL TO PROTECT VITAL TUBES/LINES D/T PT REQUIRING INSULIN GTT. NS INFUSING AT 250ML/HR AND INSULIN TITRATED FROM 3 TO 4 UNITS/HR. INFUSING VIA LEFT UPPER ARM POWERGLIDE. PT EASILY AROUSABLE AND FOLLOWS COMMANDS; HOWEVER, SHE IS VERY AGITATED WITH NOTED CONFUSION AND DISPLAYS WHINING TYPE BEHAVIORS WHEN SHE IS AWAKE. GRANDFATHER AT BEDSIDE STATING THAT PT HAS HAD CHRONIC PAIN IN HER ABDOMEN IN WHICH NOBODY IS ABLE TO GIVE HER ANSWERS TO WHAT IS CAUSING IT; THEREFORE, SHE HAS BEEN ADDICTED TO OPIOIDS AND NOT TAKING CARE OF HERSELF. VSS APPEAR STABLE; SBP >130; SINUS TACHYCARDIA NOTED WITH HR 130'S. PT SP02 >90% ON ROOM AIR. CALL LIGHT IS WITHIN REACH. FREQUENT ROUNDING BEING DONE D/T CBG CHECKS EVERY HOUR. WILL CONTINUE TO MONITOR.
[2020-06-05 23:58] LABS: Anion Gap 11 mmol/L (6-16); Blood Urea Nitrogen 11 mg/dL (8-24); Bun/Creatinine Ratio 17.4 (12.0-20.0); CO2, Blood 15 mmol/L (21-32); Calcium, Blood 8.7 mg/dL (8.5-10.1); Chloride, Blood 123 mmol/L (98-108); Creatinine, Blood 0.63 mg/dL (0.40-1.00); Glomerular Filtration Rate >60 (60-); Glucose, Blood 203 mg/dL (70-99); Potassium, Blood 3.1 mmol/L (3.5-5.5); Sodium, Blood 149 mmol/L (136-145)
[2020-06-06 04:12] LABS: BASOPHILS ABSOLUTE AUTO 0.02 K/mm3 (0.00-0.23); BASOPHILS PERCENT AUTO 0 % (0-2); EOSINOPHILS PERCENT AUTO 0 % (0-6); Hematocrit 27.9 % (33.0-51.0); Hemoglobin 8.8 g/dL (11.5-16.0); IMMATURE GRAN ABSOLUTE AUTO 0.06 K/mm3 (0.00-0.10); IMMATURE GRAN PERCENT AUTO 0 % (0-1); LYMPHOCYTES ABSOLUTE AUTO 3.12 K/mm3 (0.84-5.20); LYMPHOCYTES PERCENT AUTO 20 % (21-46); MONOCYTES ABSOLUTE AUTO 1.72 K/mm3 (0.16-1.47); MONOCYTES PERCENT AUTO 11 % (4-13); Mean Corpuscular HGB 24.6 pg (26.0-34.0); Mean Corpuscular HGB Conc 31.5 g/dL (31.5-36.5); Mean Corpuscular Volume 78 fL (80-100); Mean Platelet Volume 10.3 fL (9.1-12.4); NEUTROPHILS ABSOLUTE AUTO 10.71 K/mm3 (1.96-9.15); NEUTROPHILS PERCENT AUTO 69 % (41-73); Platelet Count 282 K/mm3 (150-400); RDW Coefficient Variation 14.6 % (11.7-14.2); RDW Standard Deviation 40.9 fL (35.1-46.3); Red Blood Cell Count 3.58 M/mm3 (3.80-5.20); White Blood Cell Count 15.63 K/mm3 (4.00-11.30)
[2020-06-06 04:29] LABS: Anion Gap 7 mmol/L (6-16); Blood Urea Nitrogen 8 mg/dL (8-24); Bun/Creatinine Ratio 13.7 (12.0-20.0); CO2, Blood 19 mmol/L (21-32); Calcium, Blood 8.4 mg/dL (8.5-10.1); Chloride, Blood 123 mmol/L (98-108); Creatinine, Blood 0.59 mg/dL (0.40-1.00); Glomerular Filtration Rate >60 (60-); Glucose, Blood 159 mg/dL (70-99); Potassium, Blood 2.9 mmol/L (3.5-5.5); Sodium, Blood 149 mmol/L (136-145)
--- NOTE | 2020-06-06 05:43 | NUR ---
END OF SHIFT SUMMARY PT REMAINS ON INSULIN GTT AT 2 UNITS/HR WITH D5 1/2 NS AT 200MLS/HR. CBG'S STABLE AROUND 160'S. PT REMAINS IN BILATERAL SOFT WRIST RESTRAINTS TO PREVENT HER FROM PULLING AT PERIPHAL IV ACCESS'S, WELL TO PREVENT FALLS D/T ALTERED MENTATION. PT ABLE TO FOLLOW COMMANDS AND MAKE HER NEEDS KNOWN; HOWEVER, NOT FULLY ABLE TO ASSESS MENTATION D/T PT DECLINING TO ANSWER QUESTIONS. BOSS REMAINS PATENT AND DRAINING ADEQUATE AMOUNTS TO GRAVITY. PT HAD ONE EPISODE OF EMESIS AROUND 0000, AT WHICH GORDO VEST WAS REMOVED D/T IMPROVED BEHAVIORS AND DECREASED EPISODES OF ATTEMPTING TO GET OUT OF BED. EMESIS WAS UNMEASURED, BUT YELLOW BILE IN COLOR. LUNG SOUNDS REMAINED CLEAR WITH NO COUGH OR HYPOXIA NOTED T/O REST OF SHIFT. VSS, SEE FLOWSHEET. SBP INCREASED TO >160. HR HAS MAINTAINED 120-130'S T/O NIGHT EVEN WITH PT SLEEPING. TEMP IS INCREASING TO 100.1. PER GRANDFATHER PT USES OPIATES CHRONICALLY AND ABUSES THEM; THEREFORE, PT IS POSSIBLY STARTING TO WITHDRAWAL. CALL OUT TO DR. KRAUSE REGARDING STARTING CLONIDINE PATCH D/T PT STILL NOT SAFE TO SWALLOW. ATIVAN 1MG GIVEN AT THE START OF THE SHIFT WITH NO EFFECT WITH BP OR HR. WILL CONTINUE TO MONITOR UNTIL REPORT IS HANDED OFF TO ONCOMING RN.
--- NOTE | 2020-06-06 09:32 | NUR ---
CARE ASSUMED ASSESSMENT COMPLETED, PT WOKE DURING ASSESSMENT AND BECAME AGITATED, CRYING AND SAYING "PLEASE HELP ME," ASKING FOR WATER AND PAIN MEDS FOR ABD PAIN. PT IRRATIONAL AND UNREASONABLE, DOES NOT RESPOND APPROPRIATELY WHEN SPOKEN TO, CONTINUES TO CRY AND YELL "HELP ME." DOES MAKE EYE CONTACT AND FOLLOW SOME DIRECTIONS. AM MEDS AND FENTANYL ADMINISTERED, PT NOW RESTING QUIETLY WITH EYES CLOSED. HR 130, BP 160/80 AFTER FENTANYL, RR 20'S-32, SPO2 >95% ON RA. CONTINUING TO TITRATE INSULIN GTT TO EFFECT, CURRENTLY AT 3U/HR. DR. BRANTLEY IN TO ASSESS, NO NEW ORDERS AT THIS TIME.
[2020-06-06 12:17] LABS: Anion Gap 9 mmol/L (6-16); Blood Urea Nitrogen 7 mg/dL (8-24); Bun/Creatinine Ratio 12.1 (12.0-20.0); CO2, Blood 17 mmol/L (21-32); Calcium, Blood 8.5 mg/dL (8.5-10.1); Chloride, Blood 121 mmol/L (98-108); Creatinine, Blood 0.58 mg/dL (0.40-1.00); Glomerular Filtration Rate >60 (60-); Glucose, Blood 135 mg/dL (70-99); Potassium, Blood 3.3 mmol/L (3.5-5.5); Sodium, Blood 147 mmol/L (136-145)
[2020-06-06 16:00] LABS: Anion Gap 8 mmol/L (6-16); Blood Urea Nitrogen 5 mg/dL (8-24); Bun/Creatinine Ratio 8.9 (12.0-20.0); CO2, Blood 18 mmol/L (21-32); Calcium, Blood 8.4 mg/dL (8.5-10.1); Chloride, Blood 123 mmol/L (98-108); Creatinine, Blood 0.56 mg/dL (0.40-1.00); Glomerular Filtration Rate >60 (60-); Glucose, Blood 149 mg/dL (70-99); Potassium, Blood 3.2 mmol/L (3.5-5.5); Sodium, Blood 149 mmol/L (136-145)
--- NOTE | 2020-06-06 18:47 | NUR ---
END OF SHIFT PT SLEPT MOST OF SHIFT, CONTINUED TO TITRATE INSULIN GTT PER ORDERS. CO2 REMAINS LOW, INSULIN CONTINUES TO INFUSE WITH D5 1/2NS UNTIL CO2 CORRECTED. POTASSIUM/PHOSPATE REPLACED PER ORDERS. PT WOKE TWO TIMES TODAY TO REQUEST PAIN MEDICATION, FENTANYL ADMINISTERED PER ORDERS. PT BECAME AGITATED THIS EVENING, REQUESTING TO SPEAK TO DOCTOR SO THAT SHE CAN HAVE DILAUDID IVP AND WATER. DR. BRANTLEY NOTIFIED OF PT REQUESTS, NO NEW ORDERS, ATIVAN ADMINISTERED FOR AGITATION. PT THEN WENT BACK TO SLEEP. HR IMPROVED, IS NOW 100-110, BP 140/90. BOSS REMAINS PATENT WITH CLEAR YELLOW URINE. REPORT TO ONCOMING SHIFT.
[2020-06-06 18:50] LABS: Anion Gap 8 mmol/L (6-16); Blood Urea Nitrogen 4 mg/dL (8-24); Bun/Creatinine Ratio 7.8 (12.0-20.0); CO2, Blood 16 mmol/L (21-32); Calcium, Blood 8.3 mg/dL (8.5-10.1); Chloride, Blood 123 mmol/L (98-108); Creatinine, Blood 0.51 mg/dL (0.40-1.00); Glomerular Filtration Rate >60 (60-); Glucose, Blood 228 mg/dL (70-99); Potassium, Blood 3.4 mmol/L (3.5-5.5); Sodium, Blood 147 mmol/L (136-145)
--- NOTE | 2020-06-06 19:27 | NUR ---
ASSUMED CARE NOTE: ASSUMED CARE OF PT AT 1900, RECEVIED REPORT FROM RIVERA ALEXANDER. PT IS SLEEPING, AROUSABLE TO PAINFUL AND VERBAL STIMULI. PT IS ON RA WITH SPO2 ABOVE 95% LUNG SOUNDS ARE CLEAR T/O. PT IN SINUS RHYTHM WITH HR IN THE 90'S, PT DENIES ANY CHEST PAIN AT THIS TIME. BP STABLE. AFEBRILE. INSULIN AT 2U/HR. BOWEL TONES HEARD IN ALL QUADRANTS. BOSS PATENT AND DRAINING TO GRAVITY. WILL CONTINUE TO MONITOR PT T/O SHIFT.
--- NOTE | 2020-06-06 20:09 | NUR ---
CALLED REGARDING LOWERING CO2 LEVELS, ORDERS TO OBTAIN BMP LABS GIVEN. CONCERNS FOR OPIOD WITHDRAWLS ADDRESSED, ORDERS TO CHANGE FENTYNAL FROM Q4HRS TO Q2HRS. WILL CONTINUE TO MONITOR PT T/O SHIFT.
--- NOTE | 2020-06-06 21:37 | NUR ---
PT CRYING OUT, REQUESTING THAT I CALL THE PHYSICAN FOR DILAUDID, STS" FENTYNAL MAKES ME SLEEP ALL DAY AND I DO NOT LIKE HOW IT MAKES ME FEEL" PT CRYING OUT " I DO NOT WANT TO BE HERE, BUT I AM VERY SICK AND NEED TO BE, I NEED YOU TO GIVE ME PAIN MEDS" PT ADVISED THAT PAIN MEDS WERE ALREADY GIVEN, SHE THEN STATES " I WILL OPEN THE DOOR AND YELL TO WAKE EVERYONE UP, GIVE ME ATIVAN" PT ADVISED THAT ATIVAN CANNOT BE GIVEN UNTIL 2200. CHARGE NURSE WENT IN TO SPEAK TO PATIENT.
[2020-06-06 21:48] LABS: Anion Gap 9 mmol/L (6-16); Blood Urea Nitrogen 3 mg/dL (8-24); Bun/Creatinine Ratio 5.9 (12.0-20.0); CO2, Blood 17 mmol/L (21-32); Calcium, Blood 8.2 mg/dL (8.5-10.1); Chloride, Blood 120 mmol/L (98-108); Creatinine, Blood 0.51 mg/dL (0.40-1.00); Glomerular Filtration Rate >60 (60-); Glucose, Blood 162 mg/dL (70-99); Magnesium, Blood 1.6 mg/dL (1.6-2.4); Phosphorus, Blood 2.9 mg/dL (2.5-4.9); Potassium, Blood 3.2 mmol/L (3.5-5.5); Sodium, Blood 146 mmol/L (136-145)
--- NOTE | 2020-06-06 22:43 | NUR ---
PT YELLING OUT " I NEED A DOCTOR, CALL THE DOCTOR, I AM NOT COMFORTABLE" PT IS CRYING OUT SAYING SHE IS GOING TO COME YELL IN THE HALLWAY AND IS STATING SHE IS GOING TO LEAVE. STS " I NEED MORE PAIN MEDICATION TO BE COMFORTABLE" CHARGE NURSE HOMER CALLED . AGREED TO COME SEE PATIENT.
--- NOTE | 2020-06-06 22:50 | NUR ---
EVALUATING PT, ORDERS FOR LIDOCAINE PATCH TO MID CHEST AREA GIVEN. WELL .5MG OF ATIVAN ONE TIME ORDER. ORDERS TO PLACE PT ON CLEAR LIQUID DIET ORDER.
[2020-06-07 04:12] LABS: BASOPHILS ABSOLUTE AUTO 0.02 K/mm3 (0.00-0.23); BASOPHILS PERCENT AUTO 0 % (0-2); EOSINOPHILS ABSOLUTE AUTO 0.07 K/mm3 (0.00-0.68); EOSINOPHILS PERCENT AUTO 1 % (0-6); Hematocrit 27.5 % (33.0-51.0); Hemoglobin 8.4 g/dL (11.5-16.0); IMMATURE GRAN ABSOLUTE AUTO 0.02 K/mm3 (0.00-0.10); IMMATURE GRAN PERCENT AUTO 0 % (0-1); LYMPHOCYTES ABSOLUTE AUTO 2.87 K/mm3 (0.84-5.20); LYMPHOCYTES PERCENT AUTO 39 % (21-46); MONOCYTES ABSOLUTE AUTO 0.66 K/mm3 (0.16-1.47); MONOCYTES PERCENT AUTO 9 % (4-13); Mean Corpuscular HGB 24.1 pg (26.0-34.0); Mean Corpuscular HGB Conc 30.5 g/dL (31.5-36.5); Mean Corpuscular Volume 79 fL (80-100); Mean Platelet Volume 9.9 fL (9.1-12.4); NEUTROPHILS ABSOLUTE AUTO 3.78 K/mm3 (1.96-9.15); NEUTROPHILS PERCENT AUTO 51 % (41-73); Platelet Count 197 K/mm3 (150-400); RDW Coefficient Variation 15.4 % (11.7-14.2); RDW Standard Deviation 44.4 fL (35.1-46.3); Red Blood Cell Count 3.48 M/mm3 (3.80-5.20); White Blood Cell Count 7.42 K/mm3 (4.00-11.30)
[2020-06-07 04:30] LABS: Anion Gap 6 mmol/L (6-16); Blood Urea Nitrogen 3 mg/dL (8-24); Bun/Creatinine Ratio 5.7 (12.0-20.0); CO2, Blood 19 mmol/L (21-32); Calcium, Blood 8.2 mg/dL (8.5-10.1); Chloride, Blood 123 mmol/L (98-108); Creatinine, Blood 0.53 mg/dL (0.40-1.00); Glomerular Filtration Rate >60 (60-); Glucose, Blood 129 mg/dL (70-99); Potassium, Blood 3.7 mmol/L (3.5-5.5); Sodium, Blood 148 mmol/L (136-145)
--- NOTE | 2020-06-07 05:44 | NUR ---
SHIFT SUMMARY: PT CONTINUES TO BE ON D5 1/2NS RUNNING AT 200ML/HR. INSULIN DRIP RUNNING AT 2U/HR. HOURLY BLOOD SUGAR CHECKS BEING TAKEN AND INSULIN DRIP AJUSTED BASED ON BLOOD SUGAR LEVELS. PT WAKES UP FROM SLEEP, CRYING AND ASKING FOR PAIN MEDICATIONS. STS SHE HAS 10/10 PAIN TO ABDOMEN AREA. PT YELLS OUT FOR HELP, PT DEMONSTRATED HOW TO USE CALL LIGHT T/O SHIFT. PT WILL CRY AND YELL UNTIL SHE GETS WHAT SHE IS ASKING FOR. WILL PUSH COUNSELING SERVICES DIRECTOR LIGHT MULTIPLE TIMES UNTIL NURSE ENTERS ROOM. PT DEMONSTRATES NO COPING SKILLS. WILL CONTINUE TO MONITOR PT UNTIL REPORT IS GIVEN TO ONCOMING SHIFT.
--- NOTE | 2020-06-07 09:54 | NUR ---
CARE ASSUMED ASSESSMENTS COMPLETED, TITRATING INSULIN GTT TO EFFECT. CO2 19. PT AGITATED AND UNCOOPERATIVE AT THIS RN'S ARRIVAL, CRYING, CALLING OUT, YELLING THAT SHE NEEDS PAIN MEDICATION. ATTEMPTED TO REDIRECT, THEN TO DISCUSS MEDICATION SCHEDULE WITH PATIENT, PT UNRECEPTIVE AND UNCOOPERATIVE. THIS RN STEPPED OUT OF ROOM, PT GOT OOB AND BEGAN KICKING DOOR. STAFF AT BEDSIDE, UNABLE TO CONSOLE OR CALM PT WHO CONTINUED TO YELL AND CRY, REFUSING TO COOPERATE WITH CARE. SECURITY CALLED, PT ASSISTED BACK TO BED, BEGAN THRASHING AND YELLING, BECAME INCREASINGLY AGITATED, 4PT RESTRAINTS APPLIED TO PROTECT PT AND LINES. DR. WRIGHT AND DR. BLUM IN TO SEE PATEINT, LONG ACTING INSULIN AND TORADOL ADMINISTERED PER ORDERS. PT REQUESTING TO LEAVE AMA, DR. WRIGHT AWARE. PT AWAITING RIDE, REMAINS IN BED AT THIS TIME, IS RESTING QUIETLY. VSS, WILL CONTINUE TO CHECK CBG'S AND TURN OFF INSULIN GTT 2 HOURS AFTER LONG ACTING INSULIN PER DR. WRIGHT IF PT REMAINS IN HOUSE.
--- NOTE | 2020-06-07 14:50 | NUR ---
UPDATE PT FELL ASLEEP SHORTLY AFTER DR. BLUM WAS IN AROUND 1000 THIS MORNING, HAS REMAINED ASLEEP SINCE. RESTRAINTS REMOVED, INSULIN GTT STOPPED AT 1100, CBG'S STABLE. BP REMAINS ELEVATED AT 160/100, HR 70'S SINUS.
--- NOTE | 2020-06-07 16:26 | NUR ---
UPDATE PT AWAKE, IRRITABLE, CRYING, DEMANDING. ASKING FOR PAIN MEDICATIONS, NO OPIATES PER DR. WRIGHT. CBG <200, PT TOLERATING LIQUIDS WELL, STATES SHE DOES NOT WANT TO EAT. DR. BLUM NOTIFIED OF PT'S CBG'S, AWAITING ORDERS. PT UP TO BR TO VOID AND HAVE BM, NO DIFFICULTY VOIDING AFTER REMOVAL OF BOSS.
--- NOTE | 2020-06-07 17:31 | NUR ---
DISCHARGE NOTE PT WOKE, IMMEDIATELY BEGAN CRYING AND YELLING, CALLING FOR HELP. WHEN ASKED WHAT PATIENT NEEDED, SHE REQUESTS PAIN MEDICATION. INFORMED OF DR. WRIGHT'S ORDER FOR NO OPIATES, PT CONTINUED TO ACT IRRATIONALLY, DISTURBING THE UNIT WITH CRYING, YELLING, AND BANGING ON THE DOOR. DR.S WRIGHT AND VIKTORIA NOTIFIED OF PT'S REQUESTS AND BEHAVIOR, BOTH DOCTORS AT BEDSIDE TO SPEAK WITH PATIENT. CBG'S AND VS STABLE, PT REPORTS SHE HAS A PLAN TO GO TO [facility] ON MONDAY, DISCHARGE ORDERS RECEIVED. IV'S DC'D WITH TIPS INTACT, PRESSURE DRESSINGS APPLIED. PT ASSISTED TO DRESS, DC TO HOME WITH BELONGINGS AND DC INSTRUCTIONS, VERBALIZES UNDERSTANDING. PT ASSISSTED TO CAR VIA WC BY STAFF, FAMILY MEMBER TO TAKE PT HOME.
== END 2020-06-07 17:29 | disposition home or self-care (01) | DRG 637 ==
LOC: ER 09:25 → ICUW 12:51 → ICUE 13:35
PROVIDERS: Emergency Medicine; Internal Medicine; Nurse Practitioner Acute Care; Student in an Organized Health Care Education/Training Program; ADMIT Internal Medicine
DX: E10.10 Type 1 diabetes mellitus with ketoacidosis without coma (principal); G92 Toxic encephalopathy; F11.20 Opioid dependence, uncomplicated; R65.10 Systemic inflammatory response syndrome (SIRS) of non-infectious origin without acute organ dysfunction; E87.0 Hyperosmolality and hypernatremia; I10 Essential (primary) hypertension; F17.210 Nicotine dependence, cigarettes, uncomplicated; E03.9 Hypothyroidism, unspecified; G89.4 Chronic pain syndrome; E86.0 Dehydration; F32.9 Major depressive disorder, single episode, unspecified; F41.9 Anxiety disorder, unspecified; E87.6 Hypokalemia
CPT/HCPCS: 36415; 51701; 51702; 71045; 80048; 80053; 81001; 82010; 82803; 82947; 83690; 83735; 84100; 84439; 84443; 84481; 84484; 84703; 85025; 93005; 93010; 96361; 96374; 96375; 99285-25; A9270-GY; C1751; J1650; J1815; J1885; J2060; J2405; J3010; J3480; J7030; J7042; J7060; J7120

== ENCOUNTER 2020-06-12 02:55 | Emergency (ER) | payer MEDICARE, OTHER ==
[~2020-06-12] VITALS: Ht 165.1 cm; Wt 68.0 kg
[2020-06-12 04:13] LABS: BASOPHILS ABSOLUTE AUTO 0.04 K/mm3 (0.00-0.23); BASOPHILS PERCENT AUTO 0 % (0-2); EOSINOPHILS ABSOLUTE AUTO 0.18 K/mm3 (0.00-0.68); EOSINOPHILS PERCENT AUTO 1 % (0-6); Hematocrit 32.5 % (33.0-51.0); Hemoglobin 9.7 g/dL (11.5-16.0); IMMATURE GRAN ABSOLUTE AUTO 0.06 K/mm3 (0.00-0.10); IMMATURE GRAN PERCENT AUTO 0 % (0-1); LYMPHOCYTES ABSOLUTE AUTO 4.32 K/mm3 (0.84-5.20); LYMPHOCYTES PERCENT AUTO 27 % (21-46); MONOCYTES ABSOLUTE AUTO 1.58 K/mm3 (0.16-1.47); MONOCYTES PERCENT AUTO 10 % (4-13); Mean Corpuscular HGB 24.1 pg (26.0-34.0); Mean Corpuscular HGB Conc 29.8 g/dL (31.5-36.5); Mean Corpuscular Volume 81 fL (80-100); Mean Platelet Volume 10.6 fL (9.1-12.4); NEUTROPHILS ABSOLUTE AUTO 9.63 K/mm3 (1.96-9.15); NEUTROPHILS PERCENT AUTO 61 % (41-73); Platelet Count 313 K/mm3 (150-400); RDW Coefficient Variation 15.5 % (11.7-14.2); RDW Standard Deviation 44.2 fL (35.1-46.3); Red Blood Cell Count 4.02 M/mm3 (3.80-5.20); White Blood Cell Count 15.81 K/mm3 (4.00-11.30)
[2020-06-12 04:31] LABS: Alanine Aminotransfer (ALT/SGP 14 U/L (12-78); Albumin, Blood 3.1 g/dL (3.4-5.0); Albumin/Globulin Ratio 0.7 (0.8-1.8); Alk Phos 161 U/L (50-136); Anion Gap 8 mmol/L (6-16); Aspartate Aminotrans (AST/SGOT 9 U/L (12-37); Bilirubin, Total 0.6 mg/dL (0.1-1.0); Blood Urea Nitrogen 11 mg/dL (8-24); Bun/Creatinine Ratio 14.5 (12.0-20.0); CO2, Blood 24 mmol/L (21-32); Calcium, Blood 8.7 mg/dL (8.5-10.1); Chloride, Blood 101 mmol/L (98-108); Creatinine, Blood 0.76 mg/dL (0.40-1.00); Globulin, Blood 4.5 g/dL (2.2-4.0); Glomerular Filtration Rate >60 (60-); Glucose, Blood 407 mg/dL (70-99); Potassium, Blood 3.7 mmol/L (3.5-5.5); Sodium, Blood 133 mmol/L (136-145); Total Protein, Blood 7.6 g/dL (6.4-8.2)
[2020-06-12 05:21] LABS: Appearance, Urine Hazy (Clear); Bilirubin, Urine Neg (Neg); Blood, Urine 5+ (Neg); Color, Urine Yellow (P-Yellow); Glucose Qualitative, Urine 4+ (Neg); Ketones, Urine Neg (Neg); Leukocyte Esterase, Urine 1+ (Neg); Nitrite, Urine Neg (Neg); Protein, Urine 1+ (Neg); Urobilinogen, Urine NORM (Normal)
[2020-06-12 05:53] LABS: Red Blood Cells, Urine TNTC /hpf (0-2); White Blood Cells, Urine 0-2 /hpf (0-5)
[2020-06-12 05:54] LABS: Bacteria Few /hpf; Squamous Epithelial Cells Rare /hpf (Few)
== END 2020-06-12 06:10 | disposition home or self-care (01) ==
LOC: ER 02:55
PROVIDERS: Emergency Medicine
DX: N94.6 Dysmenorrhea, unspecified (principal); E10.9 Type 1 diabetes mellitus without complications; I10 Essential (primary) hypertension; F32.9 Major depressive disorder, single episode, unspecified; F41.9 Anxiety disorder, unspecified; E03.9 Hypothyroidism, unspecified; F17.210 Nicotine dependence, cigarettes, uncomplicated; Z88.5 Allergy status to narcotic agent; Z88.0 Allergy status to penicillin; Z79.4 Long term (current) use of insulin; Z79.899 Other long term (current) drug therapy
CPT/HCPCS: 36415; 76856; 80053; 81001; 84703; 85025; 86900; 86901; 87077; 87086; 87186; 96361; 96374; 96375; 96376; 99284-25; J1170; J2405; J7120

== ENCOUNTER 2020-06-26 17:35 | Emergency (ER) | payer MEDICARE, OTHER ==
[~2020-06-26] VITALS: Ht 157.5 cm; Wt 63.5 kg
[2020-06-26 18:18] LABS: BASOPHILS ABSOLUTE AUTO 0.04 K/mm3 (0.00-0.23); BASOPHILS PERCENT AUTO 0 % (0-2); EOSINOPHILS ABSOLUTE AUTO 0.47 K/mm3 (0.00-0.68); EOSINOPHILS PERCENT AUTO 4 % (0-6); Hemoglobin 9.4 g/dL (11.5-16.0); IMMATURE GRAN ABSOLUTE AUTO 0.06 K/mm3 (0.00-0.10); IMMATURE GRAN PERCENT AUTO 1 % (0-1); LYMPHOCYTES ABSOLUTE AUTO 3.54 K/mm3 (0.84-5.20); LYMPHOCYTES PERCENT AUTO 33 % (21-46); MONOCYTES ABSOLUTE AUTO 1.14 K/mm3 (0.16-1.47); MONOCYTES PERCENT AUTO 11 % (4-13); Mean Corpuscular HGB Conc 28.5 g/dL (31.5-36.5); Mean Corpuscular Volume 84 fL (80-100); Mean Platelet Volume 10.4 fL (9.1-12.4); NEUTROPHILS PERCENT AUTO 51 % (41-73); Platelet Count 309 K/mm3 (150-400); RDW Coefficient Variation 15.5 % (11.7-14.2); RDW Standard Deviation 46.9 fL (35.1-46.3); Red Blood Cell Count 3.92 M/mm3 (3.80-5.20); White Blood Cell Count 10.75 K/mm3 (4.00-11.30)
[2020-06-26 18:36] LABS: Alanine Aminotransfer (ALT/SGP 18 U/L (12-78); Albumin, Blood 2.7 g/dL (3.4-5.0); Albumin/Globulin Ratio 0.7 (0.8-1.8); Alk Phos 166 U/L (50-136); Anion Gap 10 mmol/L (6-16); Aspartate Aminotrans (AST/SGOT 23 U/L (12-37); Bilirubin, Total 0.3 mg/dL (0.1-1.0); Blood Urea Nitrogen 11 mg/dL (8-24); Bun/Creatinine Ratio 20.7 (12.0-20.0); CO2, Blood 19 mmol/L (21-32); Calcium, Blood 8.5 mg/dL (8.5-10.1); Chloride, Blood 107 mmol/L (98-108); Creatinine, Blood 0.53 mg/dL (0.40-1.00); Globulin, Blood 3.8 g/dL (2.2-4.0); Glomerular Filtration Rate >60 (60-); Glucose, Blood 156 mg/dL (70-99); Potassium, Blood 3.6 mmol/L (3.5-5.5); Sodium, Blood 136 mmol/L (136-145); Total Protein, Blood 6.5 g/dL (6.4-8.2)
[2020-06-28] MEDS ORDERED: Spironolactone25 MG PO (17:31)
[2020-06-28] MEDS ORDERED: Percocet 5-3251 EACH PO (17:31)
== END 2020-06-26 21:50 | disposition home or self-care (01) ==
LOC: ER 17:35
PROVIDERS: Physician Assistant
DX: R60.0 Localized edema (principal); E10.9 Type 1 diabetes mellitus without complications; I10 Essential (primary) hypertension; E03.9 Hypothyroidism, unspecified; F41.9 Anxiety disorder, unspecified; F32.9 Major depressive disorder, single episode, unspecified; F17.210 Nicotine dependence, cigarettes, uncomplicated; Z88.5 Allergy status to narcotic agent; Z88.0 Allergy status to penicillin; Z79.899 Other long term (current) drug therapy
CPT/HCPCS: 36415; 80053; 83880; 85025; 99284; A9270

== ENCOUNTER 2020-07-01 11:19 | Emergency (ER) | payer MEDICARE, OTHER ==
[~2020-07-01] VITALS: Ht 157.5 cm; Wt 63.5 kg
[~2020-07-01 11:19] MED LIST changes: +Percocet 5-3251 EACH PO; +Spironolactone25 MG PO
[2020-07-01 12:39] LABS: BASOPHILS ABSOLUTE AUTO 0.03 K/mm3 (0.00-0.23); BASOPHILS PERCENT AUTO 1 % (0-2); EOSINOPHILS ABSOLUTE AUTO 0.25 K/mm3 (0.00-0.68); EOSINOPHILS PERCENT AUTO 4 % (0-6); Hematocrit 31.2 % (33.0-51.0); Hemoglobin 9.2 g/dL (11.5-16.0); IMMATURE GRAN ABSOLUTE AUTO 0.01 K/mm3 (0.00-0.10); IMMATURE GRAN PERCENT AUTO 0 % (0-1); LYMPHOCYTES PERCENT AUTO 44 % (21-46); MONOCYTES ABSOLUTE AUTO 0.74 K/mm3 (0.16-1.47); MONOCYTES PERCENT AUTO 11 % (4-13); Mean Corpuscular HGB 24.4 pg (26.0-34.0); Mean Corpuscular HGB Conc 29.5 g/dL (31.5-36.5); Mean Corpuscular Volume 83 fL (80-100); Mean Platelet Volume 10.2 fL (9.1-12.4); NEUTROPHILS ABSOLUTE AUTO 2.62 K/mm3 (1.96-9.15); NEUTROPHILS PERCENT AUTO 40 % (41-73); Platelet Count 237 K/mm3 (150-400); RDW Coefficient Variation 15.5 % (11.7-14.2); RDW Standard Deviation 46.5 fL (35.1-46.3); Red Blood Cell Count 3.77 M/mm3 (3.80-5.20); White Blood Cell Count 6.55 K/mm3 (4.00-11.30)
[2020-07-01 13:14] LABS: Alanine Aminotransfer (ALT/SGP 23 U/L (12-78); Albumin, Blood 2.4 g/dL (3.4-5.0); Albumin/Globulin Ratio 0.6 (0.8-1.8); Alk Phos 178 U/L (50-136); Anion Gap 5 mmol/L (6-16); Aspartate Aminotrans (AST/SGOT 52 U/L (12-37); Bilirubin, Total 0.3 mg/dL (0.1-1.0); Blood Urea Nitrogen 10 mg/dL (8-24); Bun/Creatinine Ratio 15.8 (12.0-20.0); CO2, Blood 27 mmol/L (21-32); Calcium, Blood 8.3 mg/dL (8.5-10.1); Chloride, Blood 107 mmol/L (98-108); Creatinine, Blood 0.63 mg/dL (0.40-1.00); Globulin, Blood 3.8 g/dL (2.2-4.0); Glomerular Filtration Rate >60 (60-); Glucose, Blood 180 mg/dL (70-99); Potassium, Blood 3.7 mmol/L (3.5-5.5); Sodium, Blood 139 mmol/L (136-145); Total Protein, Blood 6.2 g/dL (6.4-8.2)
[2020-07-01] MEDS ORDERED: CLIN300 PO (13:30)
[2020-07-01] MEDS ORDERED: HYDR1TAB94 PO (13:30)
[2020-07-01] MEDS ORDERED: ATEN50 PO (21:10)
[2020-07-01] MEDS ORDERED: GABA300 PO (21:10)
[2020-07-01] MEDS ORDERED: SPIR25 PO (21:11)
== END 2020-07-01 15:42 | disposition home or self-care (01) ==
LOC: ER 11:19
PROVIDERS: Physician Assistant
DX: L03.116 Cellulitis of left lower limb (principal); L03.115 Cellulitis of right lower limb; I10 Essential (primary) hypertension; F32.9 Major depressive disorder, single episode, unspecified; F41.9 Anxiety disorder, unspecified; E11.40 Type 2 diabetes mellitus with diabetic neuropathy, unspecified; F17.210 Nicotine dependence, cigarettes, uncomplicated; Z79.4 Long term (current) use of insulin; Z88.5 Allergy status to narcotic agent; Z88.0 Allergy status to penicillin; Z88.8 Allergy status to other drugs, medicaments and biological substances; Z79.899 Other long term (current) drug therapy
CPT/HCPCS: 36415; 80053; 83605; 85025; 93970; 96365; 96375; 99283-25; J2405; J3010; J7030

== ENCOUNTER 2020-07-01 20:03 | Emergency (ER) | payer MEDICARE, OTHER ==
[~2020-07-01] VITALS: Ht 157.5 cm; Wt 63.5 kg
[2020-07-01] MEDS ORDERED: ATEN50 PO (21:10)
[2020-07-01] MEDS ORDERED: GABA300 PO (21:10)
[2020-07-01] MEDS ORDERED: SPIR25 PO (21:11)
[2020-07-01 21:44] LABS: Source, Urine Clean Catch
[2020-07-01 21:48] LABS: Bilirubin, Urine Neg (Neg); Blood, Urine Neg (Neg); Glucose Qualitative, Urine Neg (Neg); Ketones, Urine Neg (Neg); Leukocyte Esterase, Urine Neg (Neg); Nitrite, Urine Neg (Neg); Protein, Urine Neg (Neg); Specific Gravity, Urine 1.015 (1.003-1.022); Urobilinogen, Urine NORM (Normal)
[2020-07-01 21:53] LABS: Appearance, Urine Clear (Clear); Color, Urine Yellow (P-Yellow)
[2020-07-01 22:00] LABS: U Amphetamine Screen Not Detected; U Barbituate Screen Not Detected; U Benzodiazapine Screen Not Detected; U Buprenorphine Screen Not Detected; U Cannabinoids Screen DETECTED; U Cocaine Screen Not Detected; U Methadone Screen DETECTED; U Methamphetamine Screen Not Detected; U Opiates Screen DETECTED; U Oxycodone Screen Not Detected; U Phencyclidine Screen Not Detected; U Propoxyphene Screen Not Detected
[2020-07-01 22:14] LABS: BASOPHILS ABSOLUTE AUTO 0.03 K/mm3 (0.00-0.23); BASOPHILS PERCENT AUTO 0 % (0-2); EOSINOPHILS ABSOLUTE AUTO 0.39 K/mm3 (0.00-0.68); EOSINOPHILS PERCENT AUTO 5 % (0-6); Hematocrit 30.9 % (33.0-51.0); Hemoglobin 8.8 g/dL (11.5-16.0); IMMATURE GRAN ABSOLUTE AUTO 0.01 K/mm3 (0.00-0.10); IMMATURE GRAN PERCENT AUTO 0 % (0-1); LYMPHOCYTES ABSOLUTE AUTO 3.43 K/mm3 (0.84-5.20); LYMPHOCYTES PERCENT AUTO 47 % (21-46); MONOCYTES ABSOLUTE AUTO 0.83 K/mm3 (0.16-1.47); MONOCYTES PERCENT AUTO 11 % (4-13); Mean Corpuscular HGB 23.9 pg (26.0-34.0); Mean Corpuscular HGB Conc 28.5 g/dL (31.5-36.5); Mean Corpuscular Volume 84 fL (80-100); Mean Platelet Volume 10.3 fL (9.1-12.4); NEUTROPHILS ABSOLUTE AUTO 2.66 K/mm3 (1.96-9.15); NEUTROPHILS PERCENT AUTO 36 % (41-73); Platelet Count 224 K/mm3 (150-400); RDW Coefficient Variation 15.3 % (11.7-14.2); Red Blood Cell Count 3.68 M/mm3 (3.80-5.20); White Blood Cell Count 7.35 K/mm3 (4.00-11.30)
[2020-07-01 22:33] LABS: Alanine Aminotransfer (ALT/SGP 20 U/L (12-78); Albumin, Blood 2.2 g/dL (3.4-5.0); Albumin/Globulin Ratio 0.6 (0.8-1.8); Alk Phos 172 U/L (50-136); Anion Gap 5 mmol/L (6-16); Aspartate Aminotrans (AST/SGOT 45 U/L (12-37); Bilirubin, Total 0.2 mg/dL (0.1-1.0); Blood Urea Nitrogen 9 mg/dL (8-24); CO2, Blood 24 mmol/L (21-32); Calcium, Blood 7.6 mg/dL (8.5-10.1); Chloride, Blood 111 mmol/L (98-108); Creatinine, Blood 0.56 mg/dL (0.40-1.00); Globulin, Blood 3.7 g/dL (2.2-4.0); Glomerular Filtration Rate >60 (60-); Glucose, Blood 176 mg/dL (70-99); Potassium, Blood 3.8 mmol/L (3.5-5.5); Sodium, Blood 140 mmol/L (136-145); Total Protein, Blood 5.9 g/dL (6.4-8.2)
== END 2020-07-01 23:59 | disposition home or self-care (01) ==
LOC: ER 20:03
PROVIDERS: Emergency Medicine
DX: R60.0 Localized edema (principal); R01.1 Cardiac murmur, unspecified; R06.02 Shortness of breath; E11.9 Type 2 diabetes mellitus without complications; I10 Essential (primary) hypertension; F32.9 Major depressive disorder, single episode, unspecified; F41.9 Anxiety disorder, unspecified; Z79.4 Long term (current) use of insulin; Z79.899 Other long term (current) drug therapy; Z88.5 Allergy status to narcotic agent; Z88.8 Allergy status to other drugs, medicaments and biological substances
CPT/HCPCS: 36415; 80053; 81003; 82947; 83605; 83880; 85025; 93005; 93010; 99284-25; J3370